=== PATIENT | male | born 1965 | race Caucasian/White ===

== ENCOUNTER 2016-06-30 13:14 | Inpatient (IN) | payer SELFPAY ==
[2016-06-30] VITALS (7 sets, daily range): BP systolic 128–148; BP diastolic 79–95
[~2016-06-30] VITALS: Ht 172.7 cm; Wt 92.5 kg
[2016-06-30] MEDS ORDERED: LISI10TA2 PO (13:18)
[2016-06-30] MEDS ORDERED: ALPR2TAB2 PO (13:18)
[2016-06-30] MEDS: MORPHINE SULFATE 2 MG/ML DISP.SYRIN. IV PRN ×4 (13:46→20:14)
[2016-06-30] MEDS: IV NORMAL SALINE 1000ML BAG 1,000 ML IV SCH ×2 (13:48→21:44)
--- NOTE | 2016-06-30 14:36 | PDOC1 ---
History and Physical Current Medications Current Medications Current Medications Medications (Trade) Dose Ordered Sig/Bethany Start Time Stop Time Status Last Admin Dose Admin Morphine Sulfate 2 mg PRN Q2HR PRN 06/30/16 13:30 06/30/16 13:46 2 MG Piperacillin Sod/ Tazobactam Sod 3.375 gm/Sodium Chloride 50 ml @ 100 mls/hr Q6HRS 06/30/16 18:00 UNV Sodium Chloride 1,000 ml @ 75 mls/hr [id number] 06/30/16 13:30 06/30/16 13:48 75 MLS/HR Allergies Allergies Allergies Coded Allergies Type Severity Reaction Last Updated Verified No Known Allergies Allergy Unknown 06/30/16 Yes ROS Review of System CONSTITUTIONAL: No fever or chills EYES: No recent changes SKIN: redness and swelling CARDIOVASCULAR: No chest pain, syncope, palpitations, or edema RESPIRATORY: No SOB or cough GASTROINTESTINAL: No nausea, vomiting or abdominal pain NEUROLOGICAL: No headaches or weakness ENDOCRINE: No cold or heat intolerance GENITOURINARY: No urgency or frequency of urination MUSCULOSKELETAL: left fore arm swelling with redness LYMPHATICS: No enlarged lymph nodes PSYCHIATRIC: No anxiety or depression Physical Exam Physical Exam GEN.: No apparent distress. Alert and oriented times 3. HEENT: Head is normocephalic, atraumatic NECK: Supple. no JVD LUNGS: Clear to auscultation. normal airflow HEART: RRR, S1, S2 present. Peripheral pulses intact ABDOMEN: Soft, nontender. Positive bowel sounds. EXTREMITIES: LEFT UPPER EXTREMITY FOREARM INDURATED SWELLING WITH ABSCESS, SENSATION AND PULSE INTACT IN FINGERS, NEUROLOGIC: Normal speech, normal tone PSYCHIATRIC: Normal affect, normal mood. SKIN: Vitals Vitals Vital Signs Date Time Temp Pulse Resp B/P (MAP) Pulse Ox O2 Delivery O2 Flow Rate FiO2 06/30/16 14:16 Room Air VTE Prophylaxis Ordered VTE Prophylaxis Devices: No VTE Pharmacological Prophylaxi: No SOLA VILLA MD June 30, 2016 14:36
[2016-06-30] MEDS ORDERED: VANCOMYCIN 2 GM in IV NORMAL SALINE 500ML BAG 500 ML IV ONE (16:30)
[2016-06-30] MEDS: VANCOMYCIN PER PHARMACY MC PRN (16:41)
--- NOTE | 2016-06-30 17:13 | PDOC2 ---
CONSULT Date of Consult Date of Consult DATE: 06/30/16 TIME: 16:58 Reason for Consult Reason for Consult: left forearm abscess Identification/Chief Complaint Chief Complaint left arm pain, swelling Source Source: Chart review, Patient History of Present Illness Reason for Visit: The patient is a 50 year old right hand dominant male who presented to the [facility] ER with a complaint of three days of left forearm swelling after he "fell ". [facility]. He does not report any history of drug abuse or injecting substances. He will not provide anymore history because he "does not fell well". He says he has had " all the symptoms" When asked about nausea, vomiting, and fever. Past Medical History Cardiovascular: HTN Psych: Anxiety Past Surgical History Past Surgical History: No pertinent history Family History Family History unknown Social History Lives: Homeless Current Problem List Problem List left forearm abscess Current Medications Current Medications Current Medications Morphine Sulfate 2 mg PRN Q2HR PRN IV PAIN Last administered on 06/30/16 16:26 ; Start 06/30/16 at 13:30 Sodium Chloride 1,000 ml @ 75 mls/hr [id number] IV Last administered on 06/30/16 13:48; Start 06/30/16 at 13:30 Piperacillin Sod/ Tazobactam Sod 3.375 gm/Sodium Chloride 50 ml @ 100 mls/hr Q6HRS IV ; Start 06/30/16 at 18:00 Vancomycin HCl (Vanco Per Pharmacy) 1 each PRN DAILY PRN MC SEE COMMENTS Last administered on 06/30/16 16:41; Start 06/30/16 at 21:00 Vancomycin HCl 2 gm/Sodium Chloride 500 ml @ 250 mls/hr 1X ONCE IV Last administered on 06/30/16 16:27; Start 06/30/16 at 16:30; Stop 06/30/16 at 18:29 Vancomycin HCl 1.25 gm/Sodium Chloride 250 ml @ 167 mls/hr Q12H IV ; Start 12/08 at 04:30 Vancomycin HCl 1 each 1X ONCE MC ; Start 07/02/16 at 04:00; Stop 07/02/16 at 04 :01 Active Scripts Active Reported Xanax (Alprazolam) 2 Mg Tablet 1 Tab PO TID Lisinopril 10 Mg Tablet 1 Tab PO DAILY Allergies Allergies: Coded Allergies: No Known Allergies (Verified Allergy, Unknown, 06/30/16) ROS General: YES: Other (subjective fevers) Gastrointestinal: Yes Nausea, Yes Vomiting Musculoskeletal: Yes Pain In: (left forearm, ), Yes Swelling In: (left forearm) Physical Exam Physical Exam the patient is very disheveled. feverish with malaise. Extremities: Other (left forearm swollen with fluctuant mass over his volar forearm, pustules formed over the mass. weeping. nvi distally with swelling into his hand. ) Vitals VITALS Vital Signs Date Time Temp Pulse Resp B/P (MAP) Pulse Ox O2 Delivery O2 Flow Rate FiO2 06/30/16 16:26 Room Air 06/30/16 15:00 97.6 99 22 147/86 (106) 96 97.6 Labs Labs From [facility] ER today: wbc 17 hb 13.1 plt 262 Na 133 K 3.7 Cl 98 CO2: 28 BUN 7 Cr 0.9 lactic acid: 1.7 Ca 8.9 Glucose 105 blood cultures drawn and pending. Current Medications Medications (Trade) Dose Ordered Sig/Bethany Route PRN Reason Start Time Stop Time Status Last Admin Dose Admin Morphine Sulfate 2 mg PRN Q2HR PRN IV PAIN 06/30/16 13:30 06/30/16 16:26 Sodium Chloride 1,000 ml @ 75 mls/hr [id number] IV 06/30/16 13:30 06/30/16 13:48 Piperacillin Sod/ Tazobactam Sod 3.375 gm/Sodium Chloride 50 ml @ 100 mls/hr Q6HRS IV 06/30/16 18:00 Vancomycin HCl (Vanco Per Pharmacy) 1 each PRN DAILY PRN MC SEE COMMENTS 06/30/16 21:00 06/30/16 16:41 Vancomycin HCl 2 gm/Sodium Chloride 500 ml @ 250 mls/hr 1X ONCE IV 06/30/16 16:30 06/30/16 18:29 06/30/16 16:27 Vancomycin HCl 1.25 gm/Sodium Chloride 250 ml @ 167 mls/hr Q12H IV 07/01/16 04:30 Vancomycin HCl 1 each 1X ONCE MC 07/02/16 04:00 07/02/16 04:01 Images Images xrays from [facility] were reviewed, large soft tissue swelling, no acute bony abnormalities. Assessment/Plan Assessment/Plan The patient is a 50 year old rhd male with a left forearm abscess and surrounding cellulitis that he reports has been going on for three days. Due to his overall demeanor, I think it would be prudent to relieve his abscess as soon as possible. He has been NPO since this am. I plan to take him to the OR this evening for I &D, possible wound vac placement. Recc ID consult. I will obtain cultures in the OR. likely will need serial debridements and wound vac changes over the next week or so. Dispo may be difficult if he needs IV antibiotics due to his social situation. CRISTINA SWAN MD June 30, 2016 17:13
[2016-06-30] MEDS ORDERED: IV RINGERS,LACTATED 1000ML 1,000 ML IV SCH (17:25)
[2016-06-30] MEDS ORDERED: fentaNYL PF VIAL 100 MCG/2 ML VIAL IV PRN (17:30)
[2016-06-30] MEDS ORDERED: ONDANSETRON PF 4 MG/2 ML VIAL. IV PRN (17:30)
[2016-06-30] MEDS ORDERED: PROCHLORPERAZINE 10 MG/2 ML VIAL. IV PRN (17:30)
[2016-06-30] MEDS ORDERED: LIDOCAINE 1% 1 ML SYRINGE. ID PRN (17:30)
[2016-06-30] MEDS: PIPERACILLIN/TAZOBACTAM 3.375 GM in IV NORMAL SALINE 50ML 50 ML IV SCH ×2 (18:00→23:57)
[2016-06-30] MEDS ORDERED: LIDOCAINE 2% 100 MG/5 ML SYRINGE. ONE (18:00)
[2016-06-30] MEDS ORDERED: PROPOFOL 20 ML IV ONE (18:01)
[2016-06-30] MEDS ORDERED: DEXAMETHASONE SOD PHOS 20 MG/5 ML VIAL. ONE (18:01)
[2016-06-30] MEDS ORDERED: ONDANSETRON PF 4 MG/2 ML VIAL. ONE (18:01)
[2016-06-30] MEDS ORDERED: fentaNYL PF VIAL 100 MCG/2 ML VIAL ONE ×2 (18:02→18:38)
--- NOTE | 2016-06-30 18:28 | HP ---
ADMIT DATE: 06/30/2016 CHIEF COMPLAINT: Left forearm swelling and redness. HISTORY OF PRESENT ILLNESS: A 50-year-old male patient with prior history of hypertension, presented to the [place] ER with complaints of left forearm swelling and redness for nearly 3 days. The patient did not recall any clear episodes; however, he might have had a fall or a bite insect or snake, which might have happened a few days ago; however, he did not recall, as he was kind of sleepy at the time. His history is very vague, but he denies any injection drug use, currently is homeless and disabled. Denies any fever or chills; however, this pain with swelling is gradually getting worse, which made him to come to the ER. PAST MEDICAL HISTORY: Diabetes and hypertension. PAST SURGICAL HISTORY: None. PERSONAL HISTORY: No smoking, no alcohol, no drug abuse. FAMILY HISTORY: Adopted. REVIEW OF SYSTEMS AND PHYSICAL EXAMINATION: Please see my electronic H and P. INITIAL VITAL SIGNS: Temperature 98.6, pulse 107, respirations 18, blood pressure not recorded. LABORATORY DATA: CBC: Labs reviewed from [place] ER. Hemoglobin is 13.1, WBC 17.3, hematocrit 38.0, platelets 262. Chemistry: Creatinine is 0.9, sodium is 133, potassium 3.7, chloride 98, carbon dioxide 28, gap is 7. Lactic acid 1.7. IMAGING DATA: X-ray of the forearm showed soft tissue swelling of the left forearm with more focal swelling in the mid forearm region. ASSESSMENT: 1. Acute swelling of the left forearm, unclear etiology, suspected abscess and infectious process. 2. Hypertension. 3. Leukocytosis. PLAN: 1. The patient has been admitted for IV antibiotics. Currently, he was started on Zosyn and pain control will be with IV morphine 2 mg q. 2 hours as needed. 2. I will start him p.r.n. hydralazine for blood pressure. 3. Dr. Harrington has been notified for a possible incision and drainage under surgical recommendations. 4. Infectious Disease consult for further recommendations. 5. Wound Gram stain. Monitor vitals closely. 6. CBC, BMP in a.m. SOLA VILLA MD DR: MIN/zoraida JOB#: [id number] / [id number] KATHRYN
[2016-06-30] MEDS ORDERED: SEVOFLURANE 61 TO 120 MINUTES. IH ONE (19:20)
--- NOTE | 2016-06-30 19:43 | PDOC ---
BRIEF OPERATIVE NOTE Date: June 30, 2016 Pre-Op Diagnosis left forearm abscess Post-Op Diagnosis same, myositis Procedure Performed incision and drainage of left forearm abscess, excisional debridement skin, subcutaneous tissue, muscle, and fascia Surgeon Cristina Swan MD Pelt Inspector none Anesthesia Type: General Blood Loss 50 cc Specimens Obtained 3 cultures Findings maurizio purulence under pressure, 40 cc. loculated abscess, myositis and necrotic muscle present. Complications none Additional Remarks wv to intermittent suction. will need antibiotics, likely washed out 1-2 more times depending on how his muscle responds. CRISTINA SWAN MD June 30, 2016 19:43
[2016-06-30] MEDS: fentaNYL PF VIAL 100 MCG/2 ML VIAL IV PRN ×2 (20:08→20:19)
[2016-06-30] MEDS: HYDROmorphone 2 MG/ML VIAL IV PRN ×2 (20:24→20:26)
--- NOTE | 2016-06-30 21:26 | PDOC4 ---
Operative Note Operative Note Operative Report Date of Operation: 06/30/2016 Preoperative Diagnosis: left forearm abscess Postoperative Diagnosis: left forearm abscess, myositis. Abscess dimensions: 13 x 5 cm Operation Performed: 1. Debridement of muscle and / or fascia, including epidermis, dermis, and subcutaneous tissue, first; 20 square cms or less, CPT 40687 2. Debridement of muscle and / or fascia, including epidermis, dermis, and subcutaneous tissue, each additional 20 square cms, CPT 70869 x 2 3. Negative pressure wound therapy; total wound(s) surface area greater than 50 square centimeters, CPT 44583 Surgeon: Cristina Swan MD Advertisement Distributor: none Anesthesia: General Estimated Blood Loss: Surgical Indication: The patient is a 50 year old right-hand dominant male with a left forearm abscess. He presented to the ER toxic appearing with a large fluctuant mass in his forearm. After discussing the risks and benefits of treatment the decision was made to take him to the OR to debride his abscess. Description of Procedure: The patient was identified, marked, and the procedure was reconfirmed by myself prior to taking them to the operating room. IV antibiotics were running from the floor already. A timeout was performed. The patient was positioned appropriately and underwent adequate general anesthesia. A nonsterile tourniquet was applied to the operative extremity. The extremity was prepped and draped in a standard surgical fashion. After inflating the tourniquet an incision was made directly over the area of most fluctuance on the volar forearm. Andrew purulence was encountered, approximately 40 cc. The skin was very edematous on the entire forearm. Cultures were taken. The entire abscess area was measured as 13 inches long by 5 inches wide. The superficial tisses were thickened with fibrinous material. The fascia and muscles of the brachioradialis and ECRL were partially necrotic and noncontractile. The fascia, muscles, and surrounding tissues were excisionally debrided with a knife, currettes, and ronguers until healthy bleeding contractile tissue was encountered. The area was irrigated with 6 liters of sterile saline before placing a wound vac sponge over the area to seal it. The wound vac was placed on intermittent suction and the seal was good. Disposition: The patient was transferred to the bed and taken to the recovery room awake, alert, and in stable condition. Complications: None Post-operative Plan: ID consult, IV antibiotics. Will repeat debridement In 2-3 days. CRISTINA SWAN MD June 30, 2016 21:26
[2016-07-01 03:00] VITALS: BP 115/76
[2016-07-01] MEDS: VANCOMYCIN 1.25 GM in IV NORMAL SALINE 250ML 250 ML IV SCH ×2 (03:58→17:06)
[2016-07-01] MEDS: PIPERACILLIN/TAZOBACTAM 3.375 GM in IV NORMAL SALINE 50ML 50 ML IV SCH ×4 (05:42→23:29)
[2016-07-01 07:50] VITALS: BP 108/69
[2016-07-01 08:44] LABS: BASO % 0 % (0-3); EOS % 0 % (0-3); HEMATOCRIT 35.4 % (39.0-53.0); HEMOGLOBIN 12.3 g/dL (13.0-17.5); LYMPH # 1.1 x10^3/uL (1.0-4.8); LYMPH % 7 % (24-48); MEAN CORPUSCULAR HEMOGLOBIN 31 pg (25-35); MEAN CORPUSCULAR HGB CONC 35 g/dL (31-37); MEAN CORPUSCULAR VOLUME 88 fL (79-100); MONO % 7 % (0-9); NEUT % 85 % (31-73); PLATELET COUNT 284 x10^3/uL (140-400); RED BLOOD COUNT 4.04 x10^6/uL (4.30-5.70); RED CELL DISTRIBUTION WIDTH 12.8 % (11.5-14.5); WHITE BLOOD COUNT 15.3 x10^3/uL (4.0-11.0)
[2016-07-01 08:56] LABS: CALCIUM 8.7 mg/dL (8.5-10.1); CREATININE 0.8 mg/dL (0.7-1.3); GFR 103.2; POTASSIUM 4.1 mmol/L (3.5-5.1)
--- NOTE | 2016-07-01 09:16 | PDOC ---
Infectious Disease Note ROS ROS GEN: Denies fevers, chills, sweats HEENT: Denies blurred vision, sore throat CV: Denies chest pain RESP: Denies shortness of air, cough GI: Denies n/v/d NEURO: Denies confusion, dizziness MSK: Denies weakness, joint pain/swelling Vital Sign Vital Signs Vital Signs Date Time Temp Pulse Resp B/P (MAP) Pulse Ox O2 Delivery O2 Flow Rate FiO2 07/01/16 08:00 Room Air 07/01/16 07:50 97.9 76 16 108/69 (82) 98 97.9 06/30/16 20:26 2.0 Physical Exam PHYSICAL EXAM GENERAL: NAD, Alert HEENT: PERRL, OC/OP NECK: Supple, no JVD, no LN LUNGS: Clear HEART: S1S2, no gallop, no murmur ABD: Soft, NT, no organomegaly, no rebound EXT: No edema, no cyanosis CLINICAL STAFF RN: Alert, oriented x 3, no focal neurologic deficit SKIN: No rash IV: ok Labs Lab Laboratory Tests Test 07/01/16 08:05 White Blood Count 15.3 x10^3/uL (4.0-11.0) Red Blood Count 4.04 x10^6/uL (4.30-5.70) Hemoglobin 12.3 g/dL (13.0-17.5) Hematocrit 35.4 % (39.0-53.0) Mean Corpuscular Volume 88 fL (79-100) Mean Corpuscular Hemoglobin 31 pg (25-35) Mean Corpuscular Hemoglobin Concent 35 g/dL (31-37) Red Cell Distribution Width 12.8 % (11.5-14.5) Platelet Count 284 x10^3/uL (140-400) Neutrophils (%) (Auto) 85 % (31-73) Lymphocytes (%) (Auto) 7 % (24-48) Monocytes (%) (Auto) 7 % (0-9) Eosinophils (%) (Auto) 0 % (0-3) Basophils (%) (Auto) 0 % (0-3) Neutrophils # (Auto) 13.1 x10^3uL (1.8-7.7) Lymphocytes # (Auto) 1.1 x10^3/uL (1.0-4.8) Monocytes # (Auto) 1.1 x10^3/uL (0.0-1.1) Eosinophils # (Auto) 0.0 x10^3/uL (0.0-0.7) Basophils # (Auto) 0.0 x10^3/uL (0.0-0.2) Sodium Level 136 mmol/L (136-145) Potassium Level 4.1 mmol/L (3.5-5.1) Chloride Level 102 mmol/L (98-107) Carbon Dioxide Level 28 mmol/L (21-32) Anion Gap 6 (6-14) Blood Urea Nitrogen 13 mg/dL (8-26) Creatinine 0.8 mg/dL (0.7-1.3) Estimated GFR (Cockcroft-Gault) 103.2 Glucose Level 115 mg/dL (70-99) Calcium Level 8.7 mg/dL (8.5-10.1) Objective Assessment Right arm abscess s/p I and D 06/30. States has had Tetanus within 5 years Leukocytosis - now s/p Decadron HTN ? h/o Staph Plan Plan of Care Cont Zosyn. I added Vanc 06/30 Cont wound care F/u labs and cults Thank you # [id number] CHARLA MASSEY MD July 01, 2016 09:16
[2016-07-01 09:21] LABS: PLT ESTIMATE ADEQUATE (ADEQUATE)
--- NOTE | 2016-07-01 09:27 | PDOC ---
PROGRESS NOTES Chief Complaint Chief Complaint CC: Left arm abscess A/P Left forearm abscess, myositis S/P ID Leucocytosis Plan iv zosyn and vancomycin renal dosing Pain control wound [facility] orthopedics and ID following labs reviewed, monitor wbc Vitals Vitals Vital Signs Date Time Temp Pulse Resp B/P (MAP) Pulse Ox O2 Delivery O2 Flow Rate FiO2 07/01/16 08:00 Room Air 07/01/16 07:50 97.9 76 16 108/69 (82) 98 97.9 06/30/16 20:26 2.0 Physical Exam General: Alert, Oriented X3 Heart: Normal S1, Normal S2 Lungs: Clear Abdomen: Normal bowel sounds, Soft Extremities: Other (wound [facility], pulse intact in extremities. ) Labs LABS Laboratory Tests Test 07/01/16 08:05 White Blood Count 15.3 x10^3/uL (4.0-11.0) Red Blood Count 4.04 x10^6/uL (4.30-5.70) Hemoglobin 12.3 g/dL (13.0-17.5) Hematocrit 35.4 % (39.0-53.0) Mean Corpuscular Volume 88 fL (79-100) Mean Corpuscular Hemoglobin 31 pg (25-35) Mean Corpuscular Hemoglobin Concent 35 g/dL (31-37) Red Cell Distribution Width 12.8 % (11.5-14.5) Platelet Count 284 x10^3/uL (140-400) Neutrophils (%) (Auto) 85 % (31-73) Lymphocytes (%) (Auto) 7 % (24-48) Monocytes (%) (Auto) 7 % (0-9) Eosinophils (%) (Auto) 0 % (0-3) Basophils (%) (Auto) 0 % (0-3) Neutrophils # (Auto) 13.1 x10^3uL (1.8-7.7) Lymphocytes # (Auto) 1.1 x10^3/uL (1.0-4.8) Monocytes # (Auto) 1.1 x10^3/uL (0.0-1.1) Eosinophils # (Auto) 0.0 x10^3/uL (0.0-0.7) Basophils # (Auto) 0.0 x10^3/uL (0.0-0.2) Segmented Neutrophils % 83 % (35-66) Band Neutrophils % 3 % (0-9) Lymphocytes % 7 % (24-48) Monocytes % 7 % (0-10) Platelet Estimate Adequate (ADEQUATE) Sodium Level 136 mmol/L (136-145) Potassium Level 4.1 mmol/L (3.5-5.1) Chloride Level 102 mmol/L (98-107) Carbon Dioxide Level 28 mmol/L (21-32) Anion Gap 6 (6-14) Blood Urea Nitrogen 13 mg/dL (8-26) Creatinine 0.8 mg/dL (0.7-1.3) Estimated GFR (Cockcroft-Gault) 103.2 Glucose Level 115 mg/dL (70-99) Calcium Level 8.7 mg/dL (8.5-10.1) Comment Review of Relevant I have reviewed the following items mell (where applicable) has been applied. Labs Laboratory Tests Test 07/01/16 08:05 White Blood Count 15.3 x10^3/uL (4.0-11.0) Red Blood Count 4.04 x10^6/uL (4.30-5.70) Hemoglobin 12.3 g/dL (13.0-17.5) Hematocrit 35.4 % (39.0-53.0) Mean Corpuscular Volume 88 fL (79-100) Mean Corpuscular Hemoglobin 31 pg (25-35) Mean Corpuscular Hemoglobin Concent 35 g/dL (31-37) Red Cell Distribution Width 12.8 % (11.5-14.5) Platelet Count 284 x10^3/uL (140-400) Neutrophils (%) (Auto) 85 % (31-73) Lymphocytes (%) (Auto) 7 % (24-48) Monocytes (%) (Auto) 7 % (0-9) Eosinophils (%) (Auto) 0 % (0-3) Basophils (%) (Auto) 0 % (0-3) Neutrophils # (Auto) 13.1 x10^3uL (1.8-7.7) Lymphocytes # (Auto) 1.1 x10^3/uL (1.0-4.8) Monocytes # (Auto) 1.1 x10^3/uL (0.0-1.1) Eosinophils # (Auto) 0.0 x10^3/uL (0.0-0.7) Basophils # (Auto) 0.0 x10^3/uL (0.0-0.2) Segmented Neutrophils % 83 % (35-66) Band Neutrophils % 3 % (0-9) Lymphocytes % 7 % (24-48) Monocytes % 7 % (0-10) Platelet Estimate Adequate (ADEQUATE) Sodium Level 136 mmol/L (136-145) Potassium Level 4.1 mmol/L (3.5-5.1) Chloride Level 102 mmol/L (98-107) Carbon Dioxide Level 28 mmol/L (21-32) Anion Gap 6 (6-14) Blood Urea Nitrogen 13 mg/dL (8-26) Creatinine 0.8 mg/dL (0.7-1.3) Estimated GFR (Cockcroft-Gault) 103.2 Glucose Level 115 mg/dL (70-99) Calcium Level 8.7 mg/dL (8.5-10.1) Laboratory Tests Test 07/01/16 08:05 White Blood Count 15.3 x10^3/uL (4.0-11.0) Red Blood Count 4.04 x10^6/uL (4.30-5.70) Hemoglobin 12.3 g/dL (13.0-17.5) Hematocrit 35.4 % (39.0-53.0) Mean Corpuscular Volume 88 fL (79-100) Mean Corpuscular Hemoglobin 31 pg (25-35) Mean Corpuscular Hemoglobin Concent 35 g/dL (31-37) Red Cell Distribution Width 12.8 % (11.5-14.5) Platelet Count 284 x10^3/uL (140-400) Neutrophils (%) (Auto) 85 % (31-73) Lymphocytes (%) (Auto) 7 % (24-48) Monocytes (%) (Auto) 7 % (0-9) Eosinophils (%) (Auto) 0 % (0-3) Basophils (%) (Auto) 0 % (0-3) Neutrophils # (Auto) 13.1 x10^3uL (1.8-7.7) Lymphocytes # (Auto) 1.1 x10^3/uL (1.0-4.8) Monocytes # (Auto) 1.1 x10^3/uL (0.0-1.1) Eosinophils # (Auto) 0.0 x10^3/uL (0.0-0.7) Basophils # (Auto) 0.0 x10^3/uL (0.0-0.2) Segmented Neutrophils % 83 % (35-66) Band Neutrophils % 3 % (0-9) Lymphocytes % 7 % (24-48) Monocytes % 7 % (0-10) Platelet Estimate Adequate (ADEQUATE) Sodium Level 136 mmol/L (136-145) Potassium Level 4.1 mmol/L (3.5-5.1) Chloride Level 102 mmol/L (98-107) Carbon Dioxide Level 28 mmol/L (21-32) Anion Gap 6 (6-14) Blood Urea Nitrogen 13 mg/dL (8-26) Creatinine 0.8 mg/dL (0.7-1.3) Estimated GFR (Cockcroft-Gault) 103.2 Glucose Level 115 mg/dL (70-99) Calcium Level 8.7 mg/dL (8.5-10.1) Medications Current Medications Morphine Sulfate 2 mg PRN Q2HR PRN IV PAIN Last administered on 06/30/16 16:26 ; Start 06/30/16 at 13:30 Sodium Chloride 1,000 ml @ 75 mls/hr [id number] IV Last administered on 06/30/16 21:44; Start 06/30/16 at 13:30 Piperacillin Sod/ Tazobactam Sod 3.375 gm/Sodium Chloride 50 ml @ 100 mls/hr Q6HRS IV Last administered on 07/01/16 05:42; Start 06/30/16 at 18:00 Vancomycin HCl (Vanco Per Pharmacy) 1 each PRN DAILY PRN MC SEE COMMENTS Last administered on 06/30/16 16:41; Start 06/30/16 at 21:00 Vancomycin HCl 2 gm/Sodium Chloride 500 ml @ 250 mls/hr 1X ONCE IV Last administered on 06/30/16 16:27; Start 06/30/16 at 16:30; Stop 06/30/16 at 18:29; Status DC Vancomycin HCl 1.25 gm/Sodium Chloride 250 ml @ 167 mls/hr Q12H IV Last administered on 07/01/16 03:58; Start 07/01/16 at 04:30 Vancomycin HCl 1 each 1X ONCE MC ; Start 07/02/16 at 04:00; Stop 07/02/16 at 04 :01 Ondansetron HCl (Zofran) 4 mg PRN Q6HRS PRN IV NAUSEA/VOMITING; Start 06/30/16 at 17:30; Stop 07/01/16 at 17:29 Fentanyl Citrate (Fentanyl 2ml Vial) 25 mcg PRN Q5MIN PRN IV MILD PAIN; Start 06/30/16 at 17:30; Stop 07/01/16 at 17:29 Fentanyl Citrate (Fentanyl 2ml Vial) 50 mcg PRN Q5MIN PRN IV MODERATE PAIN Last administered on 06/30/16 20:19; Start 06/30/16 at 17:30; Stop 07/01/16 at 17 :29 Morphine Sulfate 1 mg PRN Q10MIN PRN IV SEVERE PAIN Last administered on 20:14; Start 06/30/16 at 17:30; Stop 07/01/16 at 17:29 Ringer's Solution 1,000 ml @ 0 mls/hr Q0M IV ; Start 06/30/16 at 17:25; Stop 12/08 at 05:24; Status DC Lidocaine HCl 2 ml PRN 1X PRN ID PRIOR TO IV START; Start 06/30/16 at 17:30; Stop 07/01/16 at 17:29 Hydromorphone HCl (Dilaudid) 0.5 mg PRN Q10MIN PRN IV SEV PAIN, Second choice Last administered on 06/30/16 20:24; Start 06/30/16 at 17:30; Stop 07/01/16 at 17 :29 Prochlorperazine Edisylate (Compazine) 5 mg PACU PRN PRN IV NAUSEA, MRX1; Start 06/30/16 at 17:30; Stop 07/01/16 at 17:29 Lidocaine HCl (Lidocaine HCl 2% Abboject) 100 mg STK-MED ONCE .ROUTE ; Start 06/30/16 at 18:00; Stop 06/30/16 at 18:01; Status DC Ondansetron HCl (Zofran) 4 mg STK-MED ONCE .ROUTE ; Start 06/30/16 at 18:01; Stop 06/30/16 at 18:02; Status DC Dexamethasone Sodium Phosphate (Decadron) 20 mg STK-MED ONCE .ROUTE ; Start 06/30 at 18:01; Stop 06/30/16 at 18:02; Status DC Propofol 20 ml @ As Directed STK-MED ONCE IV ; Start 06/30/16 at 18:01; Stop 06/30 at 18:02; Status DC Fentanyl Citrate (Fentanyl 2ml Vial) 100 mcg STK-MED ONCE .ROUTE ; Start at 18:02; Stop 06/30/16 at 18:03; Status DC Fentanyl Citrate (Fentanyl 2ml Vial) 100 mcg STK-MED ONCE .ROUTE ; Start at 18:38; Stop 06/30/16 at 18:39; Status DC Sevoflurane (Ultane) 60 ml STK-MED ONCE IH ; Start 06/30/16 at 19:20; Stop at 19:21; Status DC Hydromorphone HCl (Dilaudid) 0.4 mg PRN Q4HRS PRN IVP PAIN; Start 06/30/16 at 19 :45 Active Scripts Active Reported Xanax (Alprazolam) 2 Mg Tablet 1 Tab PO TID Lisinopril 10 Mg Tablet 1 Tab PO DAILY Vitals/I & O Vital Sign - Last 24 Hours 06/30/16 06/30/16 06/30/16 06/30/16 12:00 13:46 14:09 15:00 Temp 97.9 97.6 97.9 97.6 Pulse 98 99 Resp 22 22 B/P (MAP) 148/94 (112) 147/86 (106) Pulse Ox 99 96 O2 Delivery Room Air Room Air Room Air Room Air 06/30/16 06/30/16 06/30/16 06/30/16 16:26 16:56 18:31 19:38 Temp 100.3 100.0 100.3 100.0 Pulse 96 94 Resp 17 16 B/P (MAP) 131/75 118/69 Pulse Ox 99 99 O2 Delivery Room Air Room Air Room Air Simple Mask O2 Flow Rate 10 06/30/16 06/30/16 06/30/16 06/30/16 19:53 19:53 20:01 20:08 Pulse 96 Resp 20 20 20 B/P (MAP) 146/96 Pulse Ox 96 94 96 O2 Delivery Room Air Nasal Cannula Room Air Nasal Cannula O2 Flow Rate 2 2.0 06/30/16 06/30/16 06/30/16 06/30/16 20:08 20:14 20:19 20:24 Pulse 93 Resp 18 18 18 B/P (MAP) 138/84 Pulse Ox 94 95 96 96 O2 Delivery Nasal Cannula Nasal Cannula Nasal Cannula Nasal Cannula O2 Flow Rate 2 2.0 2.0 2.0 06/30/16 06/30/16 06/30/16 06/30/16 20:26 20:45 20:45 20:45 Resp 16 20 20 20 Pulse Ox 96 94 94 94 O2 Delivery Nasal Cannula Room Air Room Air Room Air O2 Flow Rate 2.0 06/30/16 06/30/16 06/30/16 06/30/16 20:50 21:05 21:20 21:35 Temp 98.1 98.1 Pulse 92 96 97 87 Resp 18 18 18 18 B/P (MAP) 140/95 (110) 141/88 (105) 128/80 (96) 131/84 (100) Pulse Ox 96 96 96 97 O2 Delivery Room Air Room Air Room Air Room Air 06/30/16 07/01/16 07/01/16 07/01/16 23:35 03:00 07:50 08:00 Temp 97.9 97.7 97.9 97.9 97.7 97.9 Pulse 92 79 76 Resp 18 18 16 B/P (MAP) 132/79 (96) 115/76 (89) 108/69 (82) Pulse Ox 93 94 98 O2 Delivery Room Air Room Air Room Air Room Air Intake and Output 06/30/16 06/30/16 07/01/16 15:00 23:00 07:00 Intake Total 2650 ml Output Total 1375 ml 1475 ml Balance 1275 ml -1475 ml SOLA VILLA MD July 01, 2016 09:27
[2016-07-01 11:03] VITALS: BP 101/66
[2016-07-01] MEDS: VANCOMYCIN PER PHARMACY MC PRN (12:56)
[2016-07-01] MEDS: IV NORMAL SALINE 1000ML BAG 1,000 ML IV SCH (15:19)
[2016-07-01 15:20] VITALS: BP 104/66
--- NOTE | 2016-07-01 16:51 | PDOC ---
ORTHO PROGRESS NOTES Subjective The patient says his pain has improved since surgery. He still has swelling and subjective fevers Post-op Day: 1 Procedure I &D left forearm abscess. Vitals Vital Signs Date Time Temp Pulse Resp B/P (MAP) Pulse Ox O2 Delivery O2 Flow Rate FiO2 07/01/16 15:20 98.0 87 15 104/66 (79) 95 Room Air 98.0 06/30/16 20:26 2.0 Labs Micro: gram stain from surgery reveals: small gpc, (looks like anaerobes), gp rods Laboratory Tests Test 07/01/16 08:05 White Blood Count 15.3 x10^3/uL (4.0-11.0) Red Blood Count 4.04 x10^6/uL (4.30-5.70) Hemoglobin 12.3 g/dL (13.0-17.5) Hematocrit 35.4 % (39.0-53.0) Mean Corpuscular Volume 88 fL (79-100) Mean Corpuscular Hemoglobin 31 pg (25-35) Mean Corpuscular Hemoglobin Concent 35 g/dL (31-37) Red Cell Distribution Width 12.8 % (11.5-14.5) Platelet Count 284 x10^3/uL (140-400) Neutrophils (%) (Auto) 85 % (31-73) Lymphocytes (%) (Auto) 7 % (24-48) Monocytes (%) (Auto) 7 % (0-9) Eosinophils (%) (Auto) 0 % (0-3) Basophils (%) (Auto) 0 % (0-3) Neutrophils # (Auto) 13.1 x10^3uL (1.8-7.7) Lymphocytes # (Auto) 1.1 x10^3/uL (1.0-4.8) Monocytes # (Auto) 1.1 x10^3/uL (0.0-1.1) Eosinophils # (Auto) 0.0 x10^3/uL (0.0-0.7) Basophils # (Auto) 0.0 x10^3/uL (0.0-0.2) Segmented Neutrophils % 83 % (35-66) Band Neutrophils % 3 % (0-9) Lymphocytes % 7 % (24-48) Monocytes % 7 % (0-10) Platelet Estimate Adequate (ADEQUATE) Sodium Level 136 mmol/L (136-145) Potassium Level 4.1 mmol/L (3.5-5.1) Chloride Level 102 mmol/L (98-107) Carbon Dioxide Level 28 mmol/L (21-32) Anion Gap 6 (6-14) Blood Urea Nitrogen 13 mg/dL (8-26) Creatinine 0.8 mg/dL (0.7-1.3) Estimated GFR (Cockcroft-Gault) 103.2 Glucose Level 115 mg/dL (70-99) Calcium Level 8.7 mg/dL (8.5-10.1) Laboratory Tests Test 07/01/16 08:05 White Blood Count 15.3 x10^3/uL (4.0-11.0) Red Blood Count 4.04 x10^6/uL (4.30-5.70) Hemoglobin 12.3 g/dL (13.0-17.5) Hematocrit 35.4 % (39.0-53.0) Mean Corpuscular Volume 88 fL (79-100) Mean Corpuscular Hemoglobin 31 pg (25-35) Mean Corpuscular Hemoglobin Concent 35 g/dL (31-37) Red Cell Distribution Width 12.8 % (11.5-14.5) Platelet Count 284 x10^3/uL (140-400) Neutrophils (%) (Auto) 85 % (31-73) Lymphocytes (%) (Auto) 7 % (24-48) Monocytes (%) (Auto) 7 % (0-9) Eosinophils (%) (Auto) 0 % (0-3) Basophils (%) (Auto) 0 % (0-3) Neutrophils # (Auto) 13.1 x10^3uL (1.8-7.7) Lymphocytes # (Auto) 1.1 x10^3/uL (1.0-4.8) Monocytes # (Auto) 1.1 x10^3/uL (0.0-1.1) Eosinophils # (Auto) 0.0 x10^3/uL (0.0-0.7) Basophils # (Auto) 0.0 x10^3/uL (0.0-0.2) Segmented Neutrophils % 83 % (35-66) Band Neutrophils % 3 % (0-9) Lymphocytes % 7 % (24-48) Monocytes % 7 % (0-10) Platelet Estimate Adequate (ADEQUATE) Sodium Level 136 mmol/L (136-145) Potassium Level 4.1 mmol/L (3.5-5.1) Chloride Level 102 mmol/L (98-107) Carbon Dioxide Level 28 mmol/L (21-32) Anion Gap 6 (6-14) Blood Urea Nitrogen 13 mg/dL (8-26) Creatinine 0.8 mg/dL (0.7-1.3) Estimated GFR (Cockcroft-Gault) 103.2 Glucose Level 115 mg/dL (70-99) Calcium Level 8.7 mg/dL (8.5-10.1) Notes LUE: wound vac to suction. decreased swelling in the hand and forearm. warmth and erythema to the midarm. nvi distally. Problems: (1) Abscess of forearm, left Assessment and Plan The patient is POD 1 status post I&D left forearm abscess. He is currently doing ok. Will plan to return to the OR on wednesday for repeat I & D. Will continue to monitor cultures, currently growing gram positive cocci and rods. CRISTINA SWAN MD July 01, 2016 16:51
[2016-07-01] MEDS: HYDROmorphone 2 MG/ML VIAL IV PRN (17:06)
[2016-07-01 19:00] VITALS: BP 120/76
[2016-07-01] MEDS: MORPHINE SULFATE 2 MG/ML DISP.SYRIN. IV PRN (20:22)
[2016-07-01 23:00] VITALS: BP 82/54
[2016-07-02 03:29] VITALS: BP 110/62
[2016-07-02] MEDS: HYDROmorphone 2 MG/ML VIAL IVP PRN ×4 (04:14→22:21)
[2016-07-02 04:47] LABS: CALCIUM 8.6 mg/dL (8.5-10.1); CREATININE 0.7 mg/dL (0.7-1.3); GFR 120.4; POTASSIUM 3.7 mmol/L (3.5-5.1)
[2016-07-02] MEDS: VANCOMYCIN PER PHARMACY MC PRN ×2 (05:11→12:22)
[2016-07-02] MEDS: PIPERACILLIN/TAZOBACTAM 3.375 GM in IV NORMAL SALINE 50ML 50 ML IV SCH ×3 (05:44→18:06)
[2016-07-02] MEDS: VANCOMYCIN 1.25 GM in IV NORMAL SALINE 250ML 250 ML IV SCH ×3 (06:33→22:22)
[2016-07-02 07:00] VITALS: BP 126/88
--- NOTE | 2016-07-02 09:43 | CONS ---
DATE OF CONSULTATION: 07/01/2016 LOCATION: The patient is in room 521. REQUESTING PHYSICIAN: Dr. Negrete. REASON FOR CONSULTATION: Arm abscess. HISTORY OF PRESENT ILLNESS: The patient is a pleasant 50-year-old gentleman who states he is currently homeless, although he is approved for disability and he is awaiting an apartment. [place] was walking in the dark and fell. Denies any known trauma to the area, but when he awakened on Wednesday, he had increased pain, swelling and also had fevers, chills and sweats. States he reported to [facility]. They wanted to admit him, but he said no. He was prescribed doxycycline. He denies any substance abuse. States he suffers from PTSD. States he was taking the doxycycline and despite this, things worsened and he subsequently has been admitted to [facility]. I was consulted on 06/30/2016. He was placed on Zosyn. I added vancomycin. He was taken to the operating room, underwent I and D of his arm and cultures are currently pending. He states he has had a tetanus shot within the last 5 years. PAST MEDICAL HISTORY: Positive for hypertension. He thinks he might have had a previous staph infection, but he is uncertain. Questionable PTSD. PAST SURGICAL HISTORY: Denies any surgeries. REVIEW OF SYSTEMS: Currently denies any fevers, chills, sweats. He has no headache, sore throat or cough. Appetite is improved. No nausea, vomiting, diarrhea. No dysuria, frequency or urgency. The arm pain is somewhat controlled. SOCIAL HISTORY: He is a smoker. Denies any alcohol. No substance abuse. 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 Denies any " record" that is on the books. FAMILY HISTORY: He is adopted. CURRENT MEDICATIONS: Include vancomycin, Zosyn, he did receive dexamethasone on 06/30/2016, morphine. Other meds are available and have been reviewed in the chart. PHYSICAL EXAMINATION: VITAL SIGNS: Afebrile, T-max was 100.3, currently 97.9, pulse 76, respirations 16, blood pressure 108/69, satting 98% on room air. CONSTITUTIONAL: He is cooperative, in no acute distress. HEENT: Pupils are equal and reactive. He has normal conjunctivae. Oral cavity, pharynx is clear. NECK: Supple, no JVD. LUNGS: Clear to auscultation bilaterally. HEART: S1, S2. ABDOMEN: Soft, nontender, nondistended with positive bowel sounds. EXTREMITIES: Without clubbing or cyanosis. Left arm is dressed. Has a wound VAC in place. There is 2+ edema. SKIN: Warm to touch without signs of rash. NEUROLOGIC: He is nonfocal. Moves all extremities. Affect is somewhat flat. LABORATORY VALUES: White count 15.3, hemoglobin 12.3, platelets are 284, neutrophils of 85. Glucose of 115, creatinine is 0.8. IMAGING: No radiological studies. IMPRESSION: 1. Right arm abscess, status post incision and drainage on 06/30/2016. States he has had a tetanus within the last 5 years. 2. Leukocytosis, but now he is status post Decadron. 3. Hypertension. 4. Questionable history of Staph. RECOMMENDATIONS: We will continue the Zosyn. Again, I added vancomycin on 06/30/2016. We will follow up labs and cultures and continue with local wound care. Thank you for allowing me to participate in this patient's care. If you have any questions, please do not hesitate to contact me. CHARLA MASSEY MD DR: SANDIP/zoraida JOB#: [id number] / [id number]
--- NOTE | 2016-07-02 10:42 | PDOC ---
PROGRESS NOTES Chief Complaint Chief Complaint CC: Left arm abscess Left forearm abscess, myositis S/P ID Leukocytosis htn anxiety d/o homelessness History of Present Illness History of Present Illness iv zosyn and vancomycin, I D following Pain control anxiety meds on wound vac needs social support Vitals Vitals Vital Signs Date Time Temp Pulse Resp B/P (MAP) Pulse Ox O2 Delivery O2 Flow Rate FiO2 07/02/16 08:45 18 Room Air 07/02/16 07:00 96.1 72 126/88 (101) 96 96.1 07/01/16 17:06 2.0 Physical Exam General: Alert, Oriented X3, mild distress Heart: Normal S1, Normal S2 Lungs: Clear Abdomen: Normal bowel sounds, Soft Extremities: No clubbing, Other (wound wac, pulse intact in extremities. ) Labs LABS Laboratory Tests Test 07/02/16 03:45 Sodium Level 140 mmol/L (136-145) Potassium Level 3.7 mmol/L (3.5-5.1) Chloride Level 105 mmol/L (98-107) Carbon Dioxide Level 28 mmol/L (21-32) Anion Gap 7 (6-14) Blood Urea Nitrogen 12 mg/dL (8-26) Creatinine 0.7 mg/dL (0.7-1.3) Estimated GFR (Cockcroft-Gault) 120.4 Glucose Level 91 mg/dL (70-99) Calcium Level 8.6 mg/dL (8.5-10.1) Vancomycin Level Trough 8.7 mcg/mL (10.0-20.0) Vancomycin Last Dose Date Vancomycin Last Dose Time Review of Systems Review of Systems anxiety arm pain 08/31 no event Comment Review of Relevant I have reviewed the following items mell (where applicable) has been applied. Labs Laboratory Tests Test 07/01/16 08:05 07/02/16 03:45 White Blood Count 15.3 x10^3/uL (4.0-11.0) Red Blood Count 4.04 x10^6/uL (4.30-5.70) Hemoglobin 12.3 g/dL (13.0-17.5) Hematocrit 35.4 % (39.0-53.0) Mean Corpuscular Volume 88 fL (79-100) Mean Corpuscular Hemoglobin 31 pg (25-35) Mean Corpuscular Hemoglobin Concent 35 g/dL (31-37) Red Cell Distribution Width 12.8 % (11.5-14.5) Platelet Count 284 x10^3/uL (140-400) Neutrophils (%) (Auto) 85 % (31-73) Lymphocytes (%) (Auto) 7 % (24-48) Monocytes (%) (Auto) 7 % (0-9) Eosinophils (%) (Auto) 0 % (0-3) Basophils (%) (Auto) 0 % (0-3) Neutrophils # (Auto) 13.1 x10^3uL (1.8-7.7) Lymphocytes # (Auto) 1.1 x10^3/uL (1.0-4.8) Monocytes # (Auto) 1.1 x10^3/uL (0.0-1.1) Eosinophils # (Auto) 0.0 x10^3/uL (0.0-0.7) Basophils # (Auto) 0.0 x10^3/uL (0.0-0.2) Segmented Neutrophils % 83 % (35-66) Band Neutrophils % 3 % (0-9) Lymphocytes % 7 % (24-48) Monocytes % 7 % (0-10) Platelet Estimate Adequate (ADEQUATE) Sodium Level 136 mmol/L (136-145) 140 mmol/L (136-145) Potassium Level 4.1 mmol/L (3.5-5.1) 3.7 mmol/L (3.5-5.1) Chloride Level 102 mmol/L (98-107) 105 mmol/L (98-107) Carbon Dioxide Level 28 mmol/L (21-32) 28 mmol/L (21-32) Anion Gap 6 (6-14) 7 (6-14) Blood Urea Nitrogen 13 mg/dL (8-26) 12 mg/dL (8-26) Creatinine 0.8 mg/dL (0.7-1.3) 0.7 mg/dL (0.7-1.3) Estimated GFR (Cockcroft-Gault) 103.2 120.4 Glucose Level 115 mg/dL (70-99) 91 mg/dL (70-99) Calcium Level 8.7 mg/dL (8.5-10.1) 8.6 mg/dL (8.5-10.1) Vancomycin Level Trough 8.7 mcg/mL (10.0-20.0) Vancomycin Last Dose Date Vancomycin Last Dose Time Laboratory Tests Test 07/02/16 03:45 Sodium Level 140 mmol/L (136-145) Potassium Level 3.7 mmol/L (3.5-5.1) Chloride Level 105 mmol/L (98-107) Carbon Dioxide Level 28 mmol/L (21-32) Anion Gap 7 (6-14) Blood Urea Nitrogen 12 mg/dL (8-26) Creatinine 0.7 mg/dL (0.7-1.3) Estimated GFR (Cockcroft-Gault) 120.4 Glucose Level 91 mg/dL (70-99) Calcium Level 8.6 mg/dL (8.5-10.1) Vancomycin Level Trough 8.7 mcg/mL (10.0-20.0) Vancomycin Last Dose Date Vancomycin Last Dose Time Microbiology 06/30/16 Gram Stain - Final, Complete Medications Current Medications Morphine Sulfate 2 mg PRN Q2HR PRN IV PAIN Last administered on 07/01/16 20:22 ; Start 06/30/16 at 13:30 Sodium Chloride 1,000 ml @ 75 mls/hr [id number] IV Last administered on 15:19; Start 06/30/16 at 13:30 Piperacillin Sod/ Tazobactam Sod 3.375 gm/Sodium Chloride 50 ml @ 100 mls/hr Q6HRS IV Last administered on 07/02/16 05:44; Start 06/30/16 at 18:00 Vancomycin HCl (Vanco Per Pharmacy) 1 each PRN DAILY PRN MC SEE COMMENTS Last administered on 07/02/16 05:11; Start 06/30/16 at 21:00 Vancomycin HCl 2 gm/Sodium Chloride 500 ml @ 250 mls/hr 1X ONCE IV Last administered on 06/30/16 16:27; Start 06/30/16 at 16:30; Stop 06/30/16 at 18:29; Status DC Vancomycin HCl 1.25 gm/Sodium Chloride 250 ml @ 167 mls/hr Q12H IV Last administered on 07/01/16 17:06; Start 07/01/16 at 04:30; Stop 07/02/16 at 05:02 ; Status DC Vancomycin HCl 1 each 1X ONCE MC ; Start 07/02/16 at 04:00; Stop 07/02/16 at 04 :01; Status DC Ondansetron HCl (Zofran) 4 mg PRN Q6HRS PRN IV NAUSEA/VOMITING; Start 06/30/16 at 17:30; Stop 07/01/16 at 17:29; Status DC Fentanyl Citrate (Fentanyl 2ml Vial) 25 mcg PRN Q5MIN PRN IV MILD PAIN; Start 06/30/16 at 17:30; Stop 07/01/16 at 17:29; Status DC Fentanyl Citrate (Fentanyl 2ml Vial) 50 mcg PRN Q5MIN PRN IV MODERATE PAIN Last administered on 06/30/16 20:19; Start 06/30/16 at 17:30; Stop 07/01/16 at 17 :29; Status DC Morphine Sulfate 1 mg PRN Q10MIN PRN IV SEVERE PAIN Last administered on 20:14; Start 06/30/16 at 17:30; Stop 07/01/16 at 17:29; Status DC Ringer's Solution 1,000 ml @ 0 mls/hr Q0M IV ; Start 06/30/16 at 17:25; Stop 12/08 at 05:24; Status DC Lidocaine HCl 2 ml PRN 1X PRN ID PRIOR TO IV START; Start 06/30/16 at 17:30; Stop 07/01/16 at 17:29; Status DC Hydromorphone HCl (Dilaudid) 0.5 mg PRN Q10MIN PRN IV SEV PAIN, Second choice Last administered on 07/01/16 17:06; Start 06/30/16 at 17:30; Stop 07/01/16 at 17:29; Status DC Prochlorperazine Edisylate (Compazine) 5 mg PACU PRN PRN IV NAUSEA, MRX1; Start 06/30/16 at 17:30; Stop 07/01/16 at 17:29; Status DC Lidocaine HCl (Lidocaine HCl 2% Abboject) 100 mg STK-MED ONCE .ROUTE ; Start 06/30/16 at 18:00; Stop 06/30/16 at 18:01; Status DC Ondansetron HCl (Zofran) 4 mg STK-MED ONCE .ROUTE ; Start 06/30/16 at 18:01; Stop 06/30/16 at 18:02; Status DC Dexamethasone Sodium Phosphate (Decadron) 20 mg STK-MED ONCE .ROUTE ; Start 06/30 at 18:01; Stop 06/30/16 at 18:02; Status DC Propofol 20 ml @ As Directed STK-MED ONCE IV ; Start 06/30/16 at 18:01; Stop 06/30 at 18:02; Status DC Fentanyl Citrate (Fentanyl 2ml Vial) 100 mcg STK-MED ONCE .ROUTE ; Start at 18:02; Stop 06/30/16 at 18:03; Status DC Fentanyl Citrate (Fentanyl 2ml Vial) 100 mcg STK-MED ONCE .ROUTE ; Start at 18:38; Stop 06/30/16 at 18:39; Status DC Sevoflurane (Ultane) 60 ml STK-MED ONCE IH ; Start 06/30/16 at 19:20; Stop at 19:21; Status DC Hydromorphone HCl (Dilaudid) 0.4 mg PRN Q4HRS PRN IVP PAIN Last administered on 07/02/16t 08:45; Start 06/30/16 at 19:45 Vancomycin HCl 1.25 gm/Sodium Chloride 250 ml @ 167 mls/hr Q8HRS IV Last administered on 07/02/16 06:33; Start 07/02/16 at 06:00 Vancomycin HCl 1 each 1X ONCE MC ; Start 07/03/16 at 05:30; Stop 07/03/16 at 05 :31 Alprazolam (Xanax) 2 mg TID PO ; Start 07/02/16 at 11:00 Active Scripts Active Reported Xanax (Alprazolam) 2 Mg Tablet 1 Tab PO TID Lisinopril 10 Mg Tablet 1 Tab PO DAILY Vitals/I & O Vital Sign - Last 24 Hours 07/01/16 07/01/16 07/01/16 07/01/16 11:03 15:20 17:06 19:00 Temp 98.0 98.0 97.5 98.0 98.0 97.5 Pulse 87 87 83 Resp 14 15 20 B/P (MAP) 101/66 (78) 104/66 (79) 120/76 (91) Pulse Ox 95 95 95 99 O2 Delivery Room Air Room Air Room Air Room Air O2 Flow Rate 2.0 07/01/16 07/01/16 07/01/16 07/01/16 20:15 20:22 21:00 23:00 Temp 97.5 97.5 Pulse 75 Resp 20 18 20 B/P (MAP) 82/54 (63) Pulse Ox 93 94 99 O2 Delivery Room Air Room Air Room Air Room Air 07/02/16 07/02/16 07/02/16 07/02/16 03:29 04:14 05:00 07:00 Temp 97.5 96.1 97.5 96.1 Pulse 71 72 Resp 20 20 18 20 B/P (MAP) 110/62 (78) 126/88 (101) Pulse Ox 92 95 95 96 O2 Delivery Room Air Room Air Room Air Room Air 07/02/16 08:45 Resp 18 O2 Delivery Room Air Intake and Output 07/01/16 07/01/16 07/02/16 15:00 23:00 07:00 Intake Total 240 ml 100 ml 200 ml Output Total 1700 ml 900 ml Balance 240 ml -1600 ml -700 ml CARLA COLON MD July 02, 2016 10:42
[2016-07-02] MEDS: IV NORMAL SALINE 1000ML BAG 1,000 ML IV SCH ×2 (10:47→18:50)
[2016-07-02] MEDS ORDERED: ALPRAZolam 1 MG TABLET PO SCH (11:00)
--- NOTE | 2016-07-02 11:05 | PDOC ---
Infectious Disease Note Subjective Subjective Better. Still some pain ROS ROS GEN: Denies fevers, chills, sweats HEENT: Denies blurred vision, sore throat CV: Denies chest pain RESP: Denies shortness of air, cough GI: Denies n/v/d. Maybe a little early constipation NEURO: Denies confusion, dizziness MSK: Denies weakness Vital Sign Vital Signs Vital Signs Date Time Temp Pulse Resp B/P (MAP) Pulse Ox O2 Delivery O2 Flow Rate FiO2 07/02/16 09:15 18 Room Air 07/02/16 07:00 96.1 72 126/88 (101) 96 96.1 07/01/16 17:06 2.0 Physical Exam PHYSICAL EXAM GENERAL: NAD, Alert, on side of bed HEENT: PERRL, OC/OP -clear NECK: Supple, no JVD, no LN LUNGS: Clear HEART: S1S2, no gallop, no murmur ABD: Soft, NT, no organomegaly, no rebound EXT: No edema, no cyanosis. Vac to LUE - with 2 plus edema WILDLIFE REHABILITATOR: Alert, oriented x 3, no focal neurologic deficit SKIN: No rash IV: ok Labs Lab Laboratory Tests Test 07/02/16 03:45 Sodium Level 140 mmol/L (136-145) Potassium Level 3.7 mmol/L (3.5-5.1) Chloride Level 105 mmol/L (98-107) Carbon Dioxide Level 28 mmol/L (21-32) Anion Gap 7 (6-14) Blood Urea Nitrogen 12 mg/dL (8-26) Creatinine 0.7 mg/dL (0.7-1.3) Estimated GFR (Cockcroft-Gault) 120.4 Glucose Level 91 mg/dL (70-99) Calcium Level 8.6 mg/dL (8.5-10.1) Vancomycin Level Trough 8.7 mcg/mL (10.0-20.0) Vancomycin Last Dose Date Vancomycin Last Dose Time Objective Assessment Right arm abscess s/p I and D 06/30. States has had Tetanus within 5 years. Cults pending Leukocytosis - now s/p Decadron HTN ? h/o Staph Plan Plan of Care Cont Zosyn. I added Vanc 06/30 Cont wound care F/u labs and cults CHARLA MASSEY MD July 02, 2016 11:05
[2016-07-02] MEDS: ALPRAZolam 1 MG TABLET PO SCH ×2 (11:19→20:03)
--- NOTE | 2016-07-02 12:40 | PDOC ---
PROGRESS NOTES Subjective Subjective Doing better today, less pain. Objective Vital Signs Vital Signs Date Time Temp Pulse Resp B/P (MAP) Pulse Ox O2 Delivery O2 Flow Rate FiO2 07/02/16 09:15 18 Room Air 07/02/16 07:00 96.1 72 126/88 (101) 96 96.1 07/01/16 17:06 2.0 Physical Exam Left forearm wound vac intact with suction on. Able to make a full composite fist and extend all digits. Mild erythema and warmth to mid forearm. Peripheral pulses and light touch sensation intact. Labs Laboratory Tests Test 07/01/16 08:05 07/02/16 03:45 White Blood Count 15.3 x10^3/uL (4.0-11.0) Red Blood Count 4.04 x10^6/uL (4.30-5.70) Hemoglobin 12.3 g/dL (13.0-17.5) Hematocrit 35.4 % (39.0-53.0) Mean Corpuscular Volume 88 fL (79-100) Mean Corpuscular Hemoglobin 31 pg (25-35) Mean Corpuscular Hemoglobin Concent 35 g/dL (31-37) Red Cell Distribution Width 12.8 % (11.5-14.5) Platelet Count 284 x10^3/uL (140-400) Neutrophils (%) (Auto) 85 % (31-73) Lymphocytes (%) (Auto) 7 % (24-48) Monocytes (%) (Auto) 7 % (0-9) Eosinophils (%) (Auto) 0 % (0-3) Basophils (%) (Auto) 0 % (0-3) Neutrophils # (Auto) 13.1 x10^3uL (1.8-7.7) Lymphocytes # (Auto) 1.1 x10^3/uL (1.0-4.8) Monocytes # (Auto) 1.1 x10^3/uL (0.0-1.1) Eosinophils # (Auto) 0.0 x10^3/uL (0.0-0.7) Basophils # (Auto) 0.0 x10^3/uL (0.0-0.2) Segmented Neutrophils % 83 % (35-66) Band Neutrophils % 3 % (0-9) Lymphocytes % 7 % (24-48) Monocytes % 7 % (0-10) Platelet Estimate Adequate (ADEQUATE) Sodium Level 136 mmol/L (136-145) 140 mmol/L (136-145) Potassium Level 4.1 mmol/L (3.5-5.1) 3.7 mmol/L (3.5-5.1) Chloride Level 102 mmol/L (98-107) 105 mmol/L (98-107) Carbon Dioxide Level 28 mmol/L (21-32) 28 mmol/L (21-32) Anion Gap 6 (6-14) 7 (6-14) Blood Urea Nitrogen 13 mg/dL (8-26) 12 mg/dL (8-26) Creatinine 0.8 mg/dL (0.7-1.3) 0.7 mg/dL (0.7-1.3) Estimated GFR (Cockcroft-Gault) 103.2 120.4 Glucose Level 115 mg/dL (70-99) 91 mg/dL (70-99) Calcium Level 8.7 mg/dL (8.5-10.1) 8.6 mg/dL (8.5-10.1) Vancomycin Level Trough 8.7 mcg/mL (10.0-20.0) Vancomycin Last Dose Date Vancomycin Last Dose Time Laboratory Tests Test 07/02/16 03:45 Sodium Level 140 mmol/L (136-145) Potassium Level 3.7 mmol/L (3.5-5.1) Chloride Level 105 mmol/L (98-107) Carbon Dioxide Level 28 mmol/L (21-32) Anion Gap 7 (6-14) Blood Urea Nitrogen 12 mg/dL (8-26) Creatinine 0.7 mg/dL (0.7-1.3) Estimated GFR (Cockcroft-Gault) 120.4 Glucose Level 91 mg/dL (70-99) Calcium Level 8.6 mg/dL (8.5-10.1) Vancomycin Level Trough 8.7 mcg/mL (10.0-20.0) Vancomycin Last Dose Date Vancomycin Last Dose Time Assessment Assessment POD #2 s/p I&D left forearm abscess Problems: Plan Plan of Care Continue wound vac and IV abx per ID. Plan to return to OR tomorrow at 1:00pm for I&D and wound vac change. JEFFERY LÓPEZ July 02, 2016 12:40
[2016-07-02 13:00] VITALS: BP 130/78
[2016-07-02 15:00] VITALS: BP 130/78
[2016-07-02 23:00] VITALS: BP 113/68
[2016-07-03] VITALS (12 sets, daily range): BP systolic 104–141; BP diastolic 30–93
[2016-07-03] MEDS: PIPERACILLIN/TAZOBACTAM 3.375 GM in IV NORMAL SALINE 50ML 50 ML IV SCH ×4 (00:56→17:43)
[2016-07-03] MEDS: HYDROmorphone 2 MG/ML VIAL IVP PRN ×4 (03:34→20:04)
[2016-07-03 05:55] LABS: BASO # 0.1 x10^3/uL (0.0-0.2); BASO % 1 % (0-3); EOS % 4 % (0-3); HEMATOCRIT 33.8 % (39.0-53.0); HEMOGLOBIN 11.7 g/dL (13.0-17.5); LYMPH # 2.6 x10^3/uL (1.0-4.8); LYMPH % 35 % (24-48); MEAN CORPUSCULAR HEMOGLOBIN 30 pg (25-35); MEAN CORPUSCULAR HGB CONC 35 g/dL (31-37); MEAN CORPUSCULAR VOLUME 87 fL (79-100); MONO % 11 % (0-9); NEUT % 49 % (31-73); PLATELET COUNT 341 x10^3/uL (140-400); RED BLOOD COUNT 3.87 x10^6/uL (4.30-5.70); RED CELL DISTRIBUTION WIDTH 12.5 % (11.5-14.5); WHITE BLOOD COUNT 7.4 x10^3/uL (4.0-11.0)
[2016-07-03 06:14] LABS: CALCIUM 8.9 mg/dL (8.5-10.1); CREATININE 0.8 mg/dL (0.7-1.3); GFR 103.2; POTASSIUM 4.4 mmol/L (3.5-5.1)
[2016-07-03] MEDS: VANCOMYCIN 1.25 GM in IV NORMAL SALINE 250ML 250 ML IV SCH ×3 (06:28→22:02)
[2016-07-03] MEDS: VANCOMYCIN PER PHARMACY MC PRN (06:30)
[2016-07-03] MEDS ORDERED: LIDOCAINE 1% 1 ML SYRINGE. ID PRN (07:00)
[2016-07-03] MEDS ORDERED: PROCHLORPERAZINE 10 MG/2 ML VIAL. IV PRN (07:00)
[2016-07-03] MEDS ORDERED: fentaNYL PF VIAL 100 MCG/2 ML VIAL IV PRN (07:00)
[2016-07-03] MEDS ORDERED: IV RINGERS,LACTATED 1000ML 1,000 ML IV SCH (07:00)
[2016-07-03] MEDS ORDERED: HYDROmorphone 2 MG/ML VIAL IV PRN (07:00)
[2016-07-03] MEDS ORDERED: ONDANSETRON PF 4 MG/2 ML VIAL. IV PRN (07:00)
[2016-07-03] MEDS ORDERED: MORPHINE SULFATE 2 MG/ML DISP.SYRIN. IV PRN (07:00)
[2016-07-03] MEDS: ALPRAZolam 1 MG TABLET PO SCH ×3 (07:57→20:10)
[2016-07-03] MEDS ORDERED: LIDOCAINE 2% 100 MG/5 ML SYRINGE. ONE (11:58)
[2016-07-03] MEDS ORDERED: fentaNYL PF VIAL 100 MCG/2 ML VIAL ONE (11:58)
[2016-07-03] MEDS ORDERED: ONDANSETRON PF 4 MG/2 ML VIAL. ONE (11:58)
[2016-07-03] MEDS ORDERED: PROPOFOL 10 MG/ML (20ML) VIAL. IV ONE (11:58)
[2016-07-03] MEDS ORDERED: DEXAMETHASONE SOD PHOS 20 MG/5 ML VIAL. ONE (11:58)
[2016-07-03] MEDS ORDERED: SEVOFLURANE 16 TO 30 MINUTES. IH ONE (13:41)
[2016-07-03] MEDS: fentaNYL PF VIAL 100 MCG/2 ML VIAL IV PRN ×2 (14:01→14:14)
--- NOTE | 2016-07-03 14:05 | PDOC ---
BRIEF OPERATIVE NOTE Date: July 03, 2016 Pre-Op Diagnosis left forearm abscess Post-Op Diagnosis same Procedure Performed I &D, Excisional debridement of muscle, wound vac placement. Surgeon Cristina Swan MD Trimming Inspector none Blood Loss 50 cc Specimens Obtained non Findings mostly healthy muscle Complications none Additional Remarks will plan to return to the OR on wednesday versus do a wound vac change on the floor. CRISTINA SWAN MD July 03, 2016 14:05
--- NOTE | 2016-07-03 14:12 | PDOC4 ---
Operative Note Operative Note Operative Report Date of Operation: 07/03/2016 Preoperative Diagnosis: left forearm abscess Postoperative Diagnosis: left forearm abscess, myositis. Abscess dimensions: 13 x 5 cm Operation Performed: 1. Debridement of muscle and / or fascia, including epidermis, dermis, and subcutaneous tissue, first; 20 square cms or less, CPT 47500 2. Negative pressure wound therapy; total wound(s) surface area greater than 50 square centimeters, CPT 13140 Surgeon: Cristina Swan MD Manager Academic: none Anesthesia: General Estimated Blood Loss: 50 cc Surgical Indication: The patient is a 50 year old right-hand dominant male with a left forearm abscess. He presented to the ER toxic appearing with a large fluctuant mass in his forearm. After discussing the risks and benefits of treatment the decision was made to take him to the OR to debride his abscess. He has had a wound vac in place for the past few days. He is on antibiotics. Description of Procedure: The patient was identified, marked, and the procedure was reconfirmed by myself prior to taking them to the operating room. IV antibiotics were running from the floor already. A timeout was performed. The patient was positioned appropriately and underwent adequate general anesthesia. A nonsterile tourniquet was applied to the operative extremity. The extremity was prepped and draped in a standard surgical fashion. The wound vac sponge was removed prior to prep. The entire wound bed was measured as 13 inches long by 5 inches wide. The fascia and muscles of the brachioradialis and ECRL were partially necrotic and noncontractile. The fascia, muscles, and surrounding tissues were excisionally debrided with a knife, currettes, and ronguers until healthy bleeding contractile tissue was encountered. The area was irrigated with 6 liters of sterile saline before placing a wound vac sponge over the area to seal it. The wound vac was placed on intermittent suction and the seal was good. Disposition: The patient was transferred to the bed and taken to the recovery room awake, alert, and in stable condition. Complications: None Post-operative Plan: ID consult, IV antibiotics. Will repeat debridement In 2-3 days versus bedside wound vac change. CRISTINA SWAN MD July 03, 2016 14:12
--- NOTE | 2016-07-03 14:18 | PDOC ---
PROGRESS NOTES Chief Complaint Chief Complaint CC: Left arm abscess Left forearm abscess, myositis S/P ID Leukocytosis htn anxiety d/o homelessness History of Present Illness History of Present Illness iv zosyn and vancomycin, I D following Pain control anxiety meds on wound vac needs social support Vitals Vitals Vital Signs Date Time Temp Pulse Resp B/P (MAP) Pulse Ox O2 Delivery O2 Flow Rate FiO2 07/03/16 14:14 20 99 Nasal Cannula 2.0 07/03/16 14:08 78 166/84 07/03/16 13:54 97.6 97.6 Physical Exam General: Alert, Oriented X3, mild distress Heart: Normal S1, Normal S2 Lungs: Clear Abdomen: Normal bowel sounds, Soft Extremities: No clubbing, Other (wound wac, pulse intact in extremities. ) Skin: No rashes Labs LABS Laboratory Tests Test 07/03/16 05:10 07/03/16 05:40 Sodium Level 140 mmol/L (136-145) Potassium Level 4.4 mmol/L (3.5-5.1) Chloride Level 104 mmol/L (98-107) Carbon Dioxide Level 30 mmol/L (21-32) Anion Gap 6 (6-14) Blood Urea Nitrogen 10 mg/dL (8-26) Creatinine 0.8 mg/dL (0.7-1.3) Estimated GFR (Cockcroft-Gault) 103.2 Glucose Level 83 mg/dL (70-99) Calcium Level 8.9 mg/dL (8.5-10.1) White Blood Count 7.4 x10^3/uL (4.0-11.0) Red Blood Count 3.87 x10^6/uL (4.30-5.70) Hemoglobin 11.7 g/dL (13.0-17.5) Hematocrit 33.8 % (39.0-53.0) Mean Corpuscular Volume 87 fL (79-100) Mean Corpuscular Hemoglobin 30 pg (25-35) Mean Corpuscular Hemoglobin Concent 35 g/dL (31-37) Red Cell Distribution Width 12.5 % (11.5-14.5) Platelet Count 341 x10^3/uL (140-400) Neutrophils (%) (Auto) 49 % (31-73) Lymphocytes (%) (Auto) 35 % (24-48) Monocytes (%) (Auto) 11 % (0-9) Eosinophils (%) (Auto) 4 % (0-3) Basophils (%) (Auto) 1 % (0-3) Neutrophils # (Auto) 3.7 x10^3uL (1.8-7.7) Lymphocytes # (Auto) 2.6 x10^3/uL (1.0-4.8) Monocytes # (Auto) 0.8 x10^3/uL (0.0-1.1) Eosinophils # (Auto) 0.3 x10^3/uL (0.0-0.7) Basophils # (Auto) 0.1 x10^3/uL (0.0-0.2) Vancomycin Level Trough 16.5 mcg/mL (10.0-20.0) Vancomycin Last Dose Date 07/02/16 Vancomycin Last Dose Time 2200 Assessment and Plan Assessmemt and Plan to OR again today repeat I+D Problems: Comment Review of Relevant I have reviewed the following items mell (where applicable) has been applied. Labs Laboratory Tests Test 07/02/16 03:45 07/03/16 05:10 07/03/16 05:40 Sodium Level 140 mmol/L (136-145) 140 mmol/L (136-145) Potassium Level 3.7 mmol/L (3.5-5.1) 4.4 mmol/L (3.5-5.1) Chloride Level 105 mmol/L (98-107) 104 mmol/L (98-107) Carbon Dioxide Level 28 mmol/L (21-32) 30 mmol/L (21-32) Anion Gap 7 (6-14) 6 (6-14) Blood Urea Nitrogen 12 mg/dL (8-26) 10 mg/dL (8-26) Creatinine 0.7 mg/dL (0.7-1.3) 0.8 mg/dL (0.7-1.3) Estimated GFR (Cockcroft-Gault) 120.4 103.2 Glucose Level 91 mg/dL (70-99) 83 mg/dL (70-99) Calcium Level 8.6 mg/dL (8.5-10.1) 8.9 mg/dL (8.5-10.1) Vancomycin Level Trough 8.7 mcg/mL (10.0-20.0) 16.5 mcg/mL (10.0-20.0) Vancomycin Last Dose Date 07/02/16 Vancomycin Last Dose Time 2200 White Blood Count 7.4 x10^3/uL (4.0-11.0) Red Blood Count 3.87 x10^6/uL (4.30-5.70) Hemoglobin 11.7 g/dL (13.0-17.5) Hematocrit 33.8 % (39.0-53.0) Mean Corpuscular Volume 87 fL (79-100) Mean Corpuscular Hemoglobin 30 pg (25-35) Mean Corpuscular Hemoglobin Concent 35 g/dL (31-37) Red Cell Distribution Width 12.5 % (11.5-14.5) Platelet Count 341 x10^3/uL (140-400) Neutrophils (%) (Auto) 49 % (31-73) Lymphocytes (%) (Auto) 35 % (24-48) Monocytes (%) (Auto) 11 % (0-9) Eosinophils (%) (Auto) 4 % (0-3) Basophils (%) (Auto) 1 % (0-3) Neutrophils # (Auto) 3.7 x10^3uL (1.8-7.7) Lymphocytes # (Auto) 2.6 x10^3/uL (1.0-4.8) Monocytes # (Auto) 0.8 x10^3/uL (0.0-1.1) Eosinophils # (Auto) 0.3 x10^3/uL (0.0-0.7) Basophils # (Auto) 0.1 x10^3/uL (0.0-0.2) Laboratory Tests Test 07/03/16 05:10 07/03/16 05:40 Sodium Level 140 mmol/L (136-145) Potassium Level 4.4 mmol/L (3.5-5.1) Chloride Level 104 mmol/L (98-107) Carbon Dioxide Level 30 mmol/L (21-32) Anion Gap 6 (6-14) Blood Urea Nitrogen 10 mg/dL (8-26) Creatinine 0.8 mg/dL (0.7-1.3) Estimated GFR (Cockcroft-Gault) 103.2 Glucose Level 83 mg/dL (70-99) Calcium Level 8.9 mg/dL (8.5-10.1) White Blood Count 7.4 x10^3/uL (4.0-11.0) Red Blood Count 3.87 x10^6/uL (4.30-5.70) Hemoglobin 11.7 g/dL (13.0-17.5) Hematocrit 33.8 % (39.0-53.0) Mean Corpuscular Volume 87 fL (79-100) Mean Corpuscular Hemoglobin 30 pg (25-35) Mean Corpuscular Hemoglobin Concent 35 g/dL (31-37) Red Cell Distribution Width 12.5 % (11.5-14.5) Platelet Count 341 x10^3/uL (140-400) Neutrophils (%) (Auto) 49 % (31-73) Lymphocytes (%) (Auto) 35 % (24-48) Monocytes (%) (Auto) 11 % (0-9) Eosinophils (%) (Auto) 4 % (0-3) Basophils (%) (Auto) 1 % (0-3) Neutrophils # (Auto) 3.7 x10^3uL (1.8-7.7) Lymphocytes # (Auto) 2.6 x10^3/uL (1.0-4.8) Monocytes # (Auto) 0.8 x10^3/uL (0.0-1.1) Eosinophils # (Auto) 0.3 x10^3/uL (0.0-0.7) Basophils # (Auto) 0.1 x10^3/uL (0.0-0.2) Vancomycin Level Trough 16.5 mcg/mL (10.0-20.0) Vancomycin Last Dose Date 07/02/16 Vancomycin Last Dose Time 2200 Microbiology 06/30/16 AFB Specimen Processing Tissue - Final, Resulted 06/30/16 Acid Fast Bacilli Culture, Resulted Pending 06/30/16 Gram Stain - Final, Resulted 06/30/16 Fungal Culture, Resulted Pending 06/30/16 Fungal Culture Result 1, Resulted Pending Medications Current Medications Morphine Sulfate 2 mg PRN Q2HR PRN IV MILD TO MODERATE PAIN Last administered on 07/01/16 20:22; Start 06/30/16 at 13:30 Sodium Chloride 1,000 ml @ 75 mls/hr [id number] IV Last administered on 18:50; Start 06/30/16 at 13:30 Piperacillin Sod/ Tazobactam Sod 3.375 gm/Sodium Chloride 50 ml @ 100 mls/hr Q6HRS IV Last administered on 07/03/16 11:41; Start 06/30/16 at 18:00 Vancomycin HCl (Vanco Per Pharmacy) 1 each PRN DAILY PRN MC SEE COMMENTS Last administered on 07/03/16 06:30; Start 06/30/16 at 21:00 Vancomycin HCl 2 gm/Sodium Chloride 500 ml @ 250 mls/hr 1X ONCE IV Last administered on 06/30/16 16:27; Start 06/30/16 at 16:30; Stop 06/30/16 at 18:29; Status DC Vancomycin HCl 1.25 gm/Sodium Chloride 250 ml @ 167 mls/hr Q12H IV Last administered on 07/01/16 17:06; Start 07/01/16 at 04:30; Stop 07/02/16 at 05:02 ; Status DC Vancomycin HCl 1 each 1X ONCE MC ; Start 07/02/16 at 04:00; Stop 07/02/16 at 04 :01; Status DC Ondansetron HCl (Zofran) 4 mg PRN Q6HRS PRN IV NAUSEA/VOMITING; Start 06/30/16 at 17:30; Stop 07/01/16 at 17:29; Status DC Fentanyl Citrate (Fentanyl 2ml Vial) 25 mcg PRN Q5MIN PRN IV MILD PAIN; Start 06/30/16 at 17:30; Stop 07/01/16 at 17:29; Status DC Fentanyl Citrate (Fentanyl 2ml Vial) 50 mcg PRN Q5MIN PRN IV MODERATE PAIN Last administered on 06/30/16 20:19; Start 06/30/16 at 17:30; Stop 07/01/16 at 17 :29; Status DC Morphine Sulfate 1 mg PRN Q10MIN PRN IV SEVERE PAIN Last administered on 20:14; Start 06/30/16 at 17:30; Stop 07/01/16 at 17:29; Status DC Ringer's Solution 1,000 ml @ 0 mls/hr Q0M IV ; Start 06/30/16 at 17:25; Stop 12/08 at 05:24; Status DC Lidocaine HCl 2 ml PRN 1X PRN ID PRIOR TO IV START; Start 06/30/16 at 17:30; Stop 07/01/16 at 17:29; Status DC Hydromorphone HCl (Dilaudid) 0.5 mg PRN Q10MIN PRN IV SEV PAIN, Second choice Last administered on 07/01/16 17:06; Start 06/30/16 at 17:30; Stop 07/01/16 at 17:29; Status DC Prochlorperazine Edisylate (Compazine) 5 mg PACU PRN PRN IV NAUSEA, MRX1; Start 06/30/16 at 17:30; Stop 07/01/16 at 17:29; Status DC Lidocaine HCl (Lidocaine HCl 2% Abboject) 100 mg STK-MED ONCE .ROUTE ; Start 06/30/16 at 18:00; Stop 06/30/16 at 18:01; Status DC Ondansetron HCl (Zofran) 4 mg STK-MED ONCE .ROUTE ; Start 06/30/16 at 18:01; Stop 06/30/16 at 18:02; Status DC Dexamethasone Sodium Phosphate (Decadron) 20 mg STK-MED ONCE .ROUTE ; Start 06/30 at 18:01; Stop 06/30/16 at 18:02; Status DC Propofol 20 ml @ As Directed STK-MED ONCE IV ; Start 06/30/16 at 18:01; Stop 06/30 at 18:02; Status DC Fentanyl Citrate (Fentanyl 2ml Vial) 100 mcg STK-MED ONCE .ROUTE ; Start at 18:02; Stop 06/30/16 at 18:03; Status DC Fentanyl Citrate (Fentanyl 2ml Vial) 100 mcg STK-MED ONCE .ROUTE ; Start at 18:38; Stop 06/30/16 at 18:39; Status DC Sevoflurane (Ultane) 60 ml STK-MED ONCE IH ; Start 06/30/16 at 19:20; Stop at 19:21; Status DC Hydromorphone HCl (Dilaudid) 0.4 mg PRN Q4HRS PRN IVP MODERATE TO SEVERE PAIN Last administered on 07/03/16 08:00; Start 06/30/16 at 19:45 Vancomycin HCl 1.25 gm/Sodium Chloride 250 ml @ 167 mls/hr Q8HRS IV Last administered on 07/03/16 13:32; Start 07/02/16 at 06:00 Vancomycin HCl 1 each 1X ONCE MC Last administered on 07/03/16 05:30; Start 07/03/16 at 05:30; Stop 07/03/16 at 05:31; Status DC Alprazolam (Xanax) 2 mg TID PO ; Start 07/02/16 at 11:00; Stop 07/02/16 at 11:00 ; Status DC Alprazolam (Xanax) 1 mg TID PO Last administered on 07/03/16 07:57; Start 01/08 at 11:00 Alprazolam (Xanax) 1 mg PRN Q8HRS PRN PO ANXIETY / AGITATION; Start 07/02/16 at 10:45 Ondansetron HCl (Zofran) 4 mg PRN Q6HRS PRN IV NAUSEA/VOMITING; Start 07/03/16 at 07:00; Stop 07/03/16 at 18:00 Fentanyl Citrate (Fentanyl 2ml Vial) 25 mcg PRN Q5MIN PRN IV MILD PAIN; Start 07/03/16 at 07:00; Stop 07/03/16 at 18:00 Fentanyl Citrate (Fentanyl 2ml Vial) 50 mcg PRN Q5MIN PRN IV MODERATE PAIN Last administered on 07/03/16 14:14; Start 07/03/16 at 07:00; Stop 07/03/16 at 18:00 Morphine Sulfate 1 mg PRN Q10MIN PRN IV SEVERE PAIN; Start 07/03/16 at 07:00; Stop 07/03/16 at 18:00 Ringer's Solution 1,000 ml @ 30 mls/hr Q24H IV ; Start 07/03/16 at 07:00; Stop 07/03/16 at 18:59 Lidocaine HCl 2 ml PRN 1X PRN ID PRIOR TO IV START; Start 07/03/16 at 07:00; Stop 07/03/16 at 18:00 Hydromorphone HCl (Dilaudid) 0.5 mg PRN Q10MIN PRN IV SEV PAIN, Second choice; Start 07/03/16 at 07:00; Stop 07/03/16 at 18:00 Prochlorperazine Edisylate (Compazine) 5 mg PACU PRN PRN IV NAUSEA, MRX1 Last administered on 07/03/16t 13:59; Start 07/03/16 at 07:00; Stop 07/03/16 at 18:00 Ondansetron HCl (Zofran) 4 mg PRN Q6HRS PRN IV NAUSEA/VOMITING; Start 07/06/16 at 07:00; Stop 07/07/16 at 06:59 Fentanyl Citrate (Fentanyl 2ml Vial) 25 mcg PRN Q5MIN PRN IV MILD PAIN; Start 07/06/16 at 07:00; Stop 07/07/16 at 06:59 Fentanyl Citrate (Fentanyl 2ml Vial) 50 mcg PRN Q5MIN PRN IV MODERATE PAIN; Start 07/06/16 at 07:00; Stop 07/07/16 at 06:59 Morphine Sulfate 1 mg PRN Q10MIN PRN IV SEVERE PAIN; Start 07/06/16 at 07:00; Stop 07/07/16 at 06:59 Ringer's Solution 1,000 ml @ 0 mls/hr Q0M IV ; Start 07/06/16 at 07:00; Stop at 18:59 Lidocaine HCl 2 ml PRN 1X PRN ID PRIOR TO IV START; Start 07/06/16 at 07:00; Stop 07/07/16 at 06:59 Hydromorphone HCl (Dilaudid) 0.5 mg PRN Q10MIN PRN IV SEV PAIN, Second choice; Start 07/06/16 at 07:00; Stop 07/07/16 at 06:59 Prochlorperazine Edisylate (Compazine) 5 mg PACU PRN PRN IV NAUSEA, MRX1; Start 07/06/16 at 07:00; Stop 07/07/16 at 06:59 Sevoflurane (Ultane) 15 ml STK-MED ONCE IH ; Start 07/03/16 at 13:41; Stop 07/03 at 13:42; Status DC Active Scripts Active Reported Xanax (Alprazolam) 2 Mg Tablet 1 Tab PO TID Lisinopril 10 Mg Tablet 1 Tab PO DAILY Vitals/I & O Vital Sign - Last 24 Hours 5/11/17 5/11/17 5/11/17 5/11/17 15:00 18:13 19:00 20:00 Temp 97.7 97.8 97.7 97.8 Pulse 65 85 Resp 18 18 18 B/P (MAP) 130/78 (95) Pulse Ox 99 97 O2 Delivery Room Air Room Air Room Air O2 Flow Rate 2.0 07/02/16 07/02/16 07/03/16 07/03/16 22:21 23:00 03:34 04:04 Temp 97.7 97.7 Pulse 75 Resp 21 20 B/P (MAP) 113/68 (83) Pulse Ox 97 97 97 97 O2 Delivery Room Air Room Air Room Air Room Air O2 Flow Rate 2.0 2.0 07/03/16 07/03/16 07/03/16 07/03/16 07:00 08:00 08:00 08:30 Temp 97.8 97.8 Pulse 71 Resp 18 18 B/P (MAP) 131/85 (100) Pulse Ox 95 O2 Delivery Room Air Room Air Room Air 07/03/16 07/03/16 07/03/16 07/03/16 09:27 11:33 12:41 13:54 Temp 97.8 97.7 97.4 97.6 97.8 97.7 97.4 97.6 Pulse 71 72 70 80 Resp 16 16 20 20 B/P (MAP) 131/85 (100) 131/85 (100) 143/88 131/87 Pulse Ox 95 92 96 98 O2 Delivery Room Air Room Air Room Air Simple Mask O2 Flow Rate 10 07/03/16 07/03/16 07/03/16 14:01 14:08 14:14 Pulse 78 Resp 20 20 20 B/P (MAP) 166/84 Pulse Ox 100 98 99 O2 Delivery Simple Mask Room Air Nasal Cannula O2 Flow Rate 10.0 2.0 Intake and Output 07/02/16 07/02/16 07/03/16 15:00 23:00 07:00 Intake Total 1050 ml 500 ml 1600 ml Output Total 1080 ml 1040 ml 1900 ml Balance -30 ml -540 ml -300 ml CARLA COLON MD July 03, 2016 14:18
[2016-07-04] MEDS: PIPERACILLIN/TAZOBACTAM 3.375 GM in IV NORMAL SALINE 50ML 50 ML IV SCH ×4 (00:02→18:03)
[2016-07-04 03:00] VITALS: BP 137/91
[2016-07-04] MEDS: HYDROmorphone 2 MG/ML VIAL IVP PRN ×5 (04:27→21:09)
[2016-07-04 05:36] LABS: CALCIUM 9.2 mg/dL (8.5-10.1); CREATININE 0.8 mg/dL (0.7-1.3); GFR 103.2; POTASSIUM 4.5 mmol/L (3.5-5.1)
[2016-07-04] MEDS: ALPRAZolam 1 MG TABLET PO PRN (05:39)
[2016-07-04] MEDS: VANCOMYCIN 1.25 GM in IV NORMAL SALINE 250ML 250 ML IV SCH ×3 (06:29→22:17)
[2016-07-04] MEDS: MORPHINE SULFATE 2 MG/ML DISP.SYRIN. IV PRN ×5 (06:33→22:22)
[2016-07-04 07:45] VITALS: BP 158/99
[2016-07-04] MEDS: ALPRAZolam 1 MG TABLET PO SCH ×3 (08:35→21:13)
[2016-07-04 11:00] VITALS: BP 138/83
[2016-07-04] MEDS: VANCOMYCIN PER PHARMACY MC PRN (11:07)
--- NOTE | 2016-07-04 11:16 | PDOC ---
Infectious Disease Note Subjective Subjective Comfortable at the moment Pain controlled with med ROS ROS GEN: Denies fevers, chills, sweats HEENT: Denies sore throat CV: Denies chest pain RESP: Denies shortness of air, cough GI: Denies n/v/d NEURO: Denies confusion, dizziness Vital Sign Vital Signs Vital Signs Date Time Temp Pulse Resp B/P (MAP) Pulse Ox O2 Delivery O2 Flow Rate FiO2 07/04/16 10:33 97 Room Air 2.0 07/04/16 07:45 97.5 83 16 158/99 (118) 97.5 Physical Exam PHYSICAL EXAM GENERAL: NAD HEENT: OC/OP pink LUNGS: Clear HEART: S1S2 ABD: Soft, NT EXT: LUE wound vac and post-op dressing dry and intact. BOOKKEEPING CLERK: Alert, oriented x 3, no focal neurologic deficit SKIN: No rash IV: ok Labs Lab Laboratory Tests Test 07/04/16 04:50 Sodium Level 138 mmol/L (136-145) Potassium Level 4.5 mmol/L (3.5-5.1) Chloride Level 102 mmol/L (98-107) Carbon Dioxide Level 29 mmol/L (21-32) Anion Gap 7 (6-14) Blood Urea Nitrogen 16 mg/dL (8-26) Creatinine 0.8 mg/dL (0.7-1.3) Estimated GFR (Cockcroft-Gault) 103.2 Glucose Level 114 mg/dL (70-99) Calcium Level 9.2 mg/dL (8.5-10.1) Micro AEROBIC CULT Final Final report AEROBIC RES 1 Final Eikenella corrodens Heavy growth AEROBIC RES 2 Final Diphtheroids Objective Assessment Right arm abscess s/p I and D 06/30; repeat I &D, excisional debridement skin, subcutaneous tissue, muscle and fascia. 07/03 Eikenella States has had Tetanus within 5 years. Leukocytosis - now s/p Decadron HTN ? h/o Staph Plan Plan of Care vanc and zosyn Cont wound care F/u labs and cults Patient seen and examined. Chart reviewed in detail. Case discussed with MAGAZINE EDITOR. Agree with above plan in addition to 2D echo + ESR+ Rheum Factor Blood C/S despite abx x 6d CECILIA DESIR APRN July 04, 2016 11:16 THIAGO SAWYER MD July 04, 2016 14:47
[2016-07-04 15:00] VITALS: BP 158/96
--- NOTE | 2016-07-04 15:39 | PDOC ---
PROGRESS NOTES Chief Complaint Chief Complaint Left arm abscess ASSESSMENT AND PLAN: 1. Left forearm abscess: s/p I&D. culture pos for Eikenella corrodens. on IV Abx as per ID 2. Leukocytosis: reactive 2/2 infect, resolved 3. HTN: not on any meds, currently fairly well controlled 4. PTSD: on disability 5. Homelessness History of Present Illness History of Present Illness fels ok. pain controlled. wondering when he is getting out of hospital Vitals Vitals Vital Signs Date Time Temp Pulse Resp B/P (MAP) Pulse Ox O2 Delivery O2 Flow Rate FiO2 07/04/16 14:17 Room Air 07/04/16 11:00 97.9 83 16 138/83 (101) 97 97.9 07/04/16 10:33 2.0 Physical Exam General: Alert, Oriented X3, No acute distress Heart: Regular rate Lungs: Clear Abdomen: Normal bowel sounds, Soft Extremities: No clubbing, No edema, Other (wound vac ) Skin: No rashes Labs LABS Laboratory Tests Test 07/04/16 04:50 Sodium Level 138 mmol/L (136-145) Potassium Level 4.5 mmol/L (3.5-5.1) Chloride Level 102 mmol/L (98-107) Carbon Dioxide Level 29 mmol/L (21-32) Anion Gap 7 (6-14) Blood Urea Nitrogen 16 mg/dL (8-26) Creatinine 0.8 mg/dL (0.7-1.3) Estimated GFR (Cockcroft-Gault) 103.2 Glucose Level 114 mg/dL (70-99) Calcium Level 9.2 mg/dL (8.5-10.1) Comment Review of Relevant Labs Medications Vitals/I & O CRISTAL OSUNA MD July 04, 2016 15:39
[2016-07-04 19:00] VITALS: BP 158/98
[2016-07-04 23:00] VITALS: BP 132/83
[2016-07-05] MEDS: PIPERACILLIN/TAZOBACTAM 3.375 GM in IV NORMAL SALINE 50ML 50 ML IV SCH ×5 (00:06→23:12)
[2016-07-05] MEDS: HYDROmorphone 2 MG/ML VIAL IVP PRN ×4 (01:12→20:53)
[2016-07-05 03:00] VITALS: BP 132/83
[2016-07-05] MEDS: MORPHINE SULFATE 2 MG/ML DISP.SYRIN. IV PRN ×4 (06:00→23:12)
[2016-07-05] MEDS: VANCOMYCIN 1.25 GM in IV NORMAL SALINE 250ML 250 ML IV SCH ×3 (06:00→21:23)
[2016-07-05] MEDS: ALPRAZolam 1 MG TABLET PO PRN ×2 (06:09→19:37)
[2016-07-05 07:20] VITALS: BP 121/79
[2016-07-05 08:44] LABS: CALCIUM 9.3 mg/dL (8.5-10.1); CREATININE 0.9 mg/dL (0.7-1.3); GFR 90.1; POTASSIUM 4.1 mmol/L (3.5-5.1)
--- NOTE | 2016-07-05 09:13 | PDOC ---
Infectious Disease Note Subjective Subjective Doing alright ROS ROS GEN: Denies fevers, chills, sweats CV: Denies chest pain RESP: Denies shortness of air, cough GI: Denies n/v/d Vital Sign Vital Signs Vital Signs Date Time Temp Pulse Resp B/P (MAP) Pulse Ox O2 Delivery O2 Flow Rate FiO2 07/05/16 07:45 Room Air 07/05/16 07:20 96.6 75 20 121/79 (93) 95 96.6 07/04/16 10:33 2.0 Physical Exam PHYSICAL EXAM GENERAL: Resting HEENT: OC/OP pink LUNGS: Clear HEART: S1S2 ABD: Soft, NT EXT: LUE wound vac in place. No area redness or induration BIRD SITTER: Alert, oriented x 3, no focal neurologic deficit SKIN: No rash IV: ok Labs Lab Laboratory Tests Test 07/04/16 16:20 07/05/16 07:45 Erythrocyte Sedimentation Rate 42 (0-15) Sodium Level 141 mmol/L (136-145) Potassium Level 4.1 mmol/L (3.5-5.1) Chloride Level 104 mmol/L (98-107) Carbon Dioxide Level 28 mmol/L (21-32) Anion Gap 9 (6-14) Blood Urea Nitrogen 9 mg/dL (8-26) Creatinine 0.9 mg/dL (0.7-1.3) Estimated GFR (Cockcroft-Gault) 90.1 Glucose Level 84 mg/dL (70-99) Calcium Level 9.3 mg/dL (8.5-10.1) Micro AEROBIC CULT Final Final report AEROBIC RES 1 Final Eikenella corrodens Heavy growth AEROBIC RES 2 Final Diphtheroids Objective Assessment Right arm abscess s/p I and D 06/30; repeat I &D, excisional debridement skin, subcutaneous tissue, muscle and fascia. 07/03 Eikenella States has had Tetanus within 5 years. Leukocytosis - now s/p Decadron HTN ? h/o Staph Plan Plan of Care vanc and Zosyn Await 2D echo Repeat BC pending ESR 42 Rheum Factor pending Patient seen and examined. Chart reviewed. Case discussed with SCALPING MACHINE OPERATOR. Agree with above plan Rheu Factor <10. With (-) Blood C/S- TTE should be adequate CECILIA DESIR ABSTRACTOR July 05, 2016 09:13 THIAGO SAWYER MD July 05, 2016 16:06
[2016-07-05] MEDS: VANCOMYCIN PER PHARMACY MC PRN ×2 (09:34→13:18)
[2016-07-05] MEDS: ALPRAZolam 1 MG TABLET PO SCH ×3 (10:14→21:22)
[2016-07-05 10:30] VITALS: BP 152/87
--- NOTE | 2016-07-05 13:35 | PDOC ---
PROGRESS NOTES Chief Complaint Chief Complaint Left arm abscess Leukocytosis Hypertension PTSD Homelessness History of Present Illness History of Present Illness Patient lying in bed in no acute distress Discussed care with nurse Spoke with nurse about pain management, changing to oral meds Vitals Vitals Vital Signs Date Time Temp Pulse Resp B/P (MAP) Pulse Ox O2 Delivery O2 Flow Rate FiO2 07/05/16 13:27 Room Air 07/05/16 10:30 96.6 83 20 152/87 (108) 95 96.6 07/04/16 10:33 2.0 Physical Exam General: Alert, Oriented X3, No acute distress Heart: Regular rate, Normal S1, Normal S2 Lungs: Clear, Other (no wheezing) Abdomen: Normal bowel sounds, Soft Extremities: No clubbing, No edema, Other (wound vac ) Skin: No rashes Labs LABS Laboratory Tests Test 07/04/16 16:20 07/05/16 07:45 Erythrocyte Sedimentation Rate 42 (0-15) Sodium Level 141 mmol/L (136-145) Potassium Level 4.1 mmol/L (3.5-5.1) Chloride Level 104 mmol/L (98-107) Carbon Dioxide Level 28 mmol/L (21-32) Anion Gap 9 (6-14) Blood Urea Nitrogen 9 mg/dL (8-26) Creatinine 0.9 mg/dL (0.7-1.3) Estimated GFR (Cockcroft-Gault) 90.1 Glucose Level 84 mg/dL (70-99) Calcium Level 9.3 mg/dL (8.5-10.1) Review of Systems Review of Systems General: denies weakness GI: denies N/V/D/C Assessment and Plan Assessmemt and Plan Assessment: Left arm abscess Leukocytosis Hypertension PTSD Homelessness Plan: -Continue antibiotics per ID -ID consulted- awaiting 2d echo -Repeat blood cultures pending -RF pending, ESR 42 -Dr. Harrington- considering return to OR on Wednesday or wound vac change on floor -D/C Dilaudid and Morphine -Switch to Percocet 5/325 PO q4h PRN -Subspecialist input appreciated Problems: Comment Review of Relevant I have reviewed the following items mell (where applicable) has been applied. Labs Laboratory Tests Test 07/04/16 04:50 07/04/16 16:20 07/05/16 07:45 Sodium Level 138 mmol/L (136-145) 141 mmol/L (136-145) Potassium Level 4.5 mmol/L (3.5-5.1) 4.1 mmol/L (3.5-5.1) Chloride Level 102 mmol/L (98-107) 104 mmol/L (98-107) Carbon Dioxide Level 29 mmol/L (21-32) 28 mmol/L (21-32) Anion Gap 7 (6-14) 9 (6-14) Blood Urea Nitrogen 16 mg/dL (8-26) 9 mg/dL (8-26) Creatinine 0.8 mg/dL (0.7-1.3) 0.9 mg/dL (0.7-1.3) Estimated GFR (Cockcroft-Gault) 103.2 90.1 Glucose Level 114 mg/dL (70-99) 84 mg/dL (70-99) Calcium Level 9.2 mg/dL (8.5-10.1) 9.3 mg/dL (8.5-10.1) Erythrocyte Sedimentation Rate 42 (0-15) Laboratory Tests Test 07/04/16 16:20 07/05/16 07:45 Erythrocyte Sedimentation Rate 42 (0-15) Sodium Level 141 mmol/L (136-145) Potassium Level 4.1 mmol/L (3.5-5.1) Chloride Level 104 mmol/L (98-107) Carbon Dioxide Level 28 mmol/L (21-32) Anion Gap 9 (6-14) Blood Urea Nitrogen 9 mg/dL (8-26) Creatinine 0.9 mg/dL (0.7-1.3) Estimated GFR (Cockcroft-Gault) 90.1 Glucose Level 84 mg/dL (70-99) Calcium Level 9.3 mg/dL (8.5-10.1) Microbiology 06/30/16 AFB Specimen Processing Tissue - Final, Resulted 06/30/16 Acid Fast Bacilli Culture, Resulted Pending 06/30/16 Gram Stain - Final, Resulted 06/30/16 Fungal Culture, Resulted Pending 06/30/16 Fungal Culture Result 1, Resulted Pending Medications Current Medications Morphine Sulfate 2 mg PRN Q2HR PRN IV MILD TO MODERATE PAIN Last administered on 07/05/16t 10:14; Start 06/30/16 at 13:30 Sodium Chloride 1,000 ml @ 75 mls/hr [id number] IV Last administered on 18:50; Start 06/30/16 at 13:30; Stop 07/03/16 at 15:12; Status DC Piperacillin Sod/ Tazobactam Sod 3.375 gm/Sodium Chloride 50 ml @ 100 mls/hr Q6HRS IV Last administered on 07/05/16 12:32; Start 06/30/16 at 18:00 Vancomycin HCl (Vanco Per Pharmacy) 1 each PRN DAILY PRN MC SEE COMMENTS Last administered on 07/05/16 13:18; Start 06/30/16 at 21:00 Vancomycin HCl 2 gm/Sodium Chloride 500 ml @ 250 mls/hr 1X ONCE IV Last administered on 06/30/16 16:27; Start 06/30/16 at 16:30; Stop 06/30/16 at 18:29; Status DC Vancomycin HCl 1.25 gm/Sodium Chloride 250 ml @ 167 mls/hr Q12H IV Last administered on 07/01/16 17:06; Start 07/01/16 at 04:30; Stop 07/02/16 at 05:02 ; Status DC Vancomycin HCl 1 each 1X ONCE MC ; Start 07/02/16 at 04:00; Stop 07/02/16 at 04 :01; Status DC Ondansetron HCl (Zofran) 4 mg PRN Q6HRS PRN IV NAUSEA/VOMITING; Start 06/30/16 at 17:30; Stop 07/01/16 at 17:29; Status DC Fentanyl Citrate (Fentanyl 2ml Vial) 25 mcg PRN Q5MIN PRN IV MILD PAIN; Start 06/30/16 at 17:30; Stop 07/01/16 at 17:29; Status DC Fentanyl Citrate (Fentanyl 2ml Vial) 50 mcg PRN Q5MIN PRN IV MODERATE PAIN Last administered on 06/30/16 20:19; Start 06/30/16 at 17:30; Stop 07/01/16 at 17 :29; Status DC Morphine Sulfate 1 mg PRN Q10MIN PRN IV SEVERE PAIN Last administered on 20:14; Start 06/30/16 at 17:30; Stop 07/01/16 at 17:29; Status DC Ringer's Solution 1,000 ml @ 0 mls/hr Q0M IV ; Start 06/30/16 at 17:25; Stop 12/08 at 05:24; Status DC Lidocaine HCl 2 ml PRN 1X PRN ID PRIOR TO IV START; Start 06/30/16 at 17:30; Stop 07/01/16 at 17:29; Status DC Hydromorphone HCl (Dilaudid) 0.5 mg PRN Q10MIN PRN IV SEV PAIN, Second choice Last administered on 07/01/16t 17:06; Start 06/30/16 at 17:30; Stop 07/01/16 at 17:29; Status DC Prochlorperazine Edisylate (Compazine) 5 mg PACU PRN PRN IV NAUSEA, MRX1; Start 06/30/16 at 17:30; Stop 07/01/16 at 17:29; Status DC Lidocaine HCl (Lidocaine HCl 2% Abboject) 100 mg STK-MED ONCE .ROUTE ; Start 06/30/16 at 18:00; Stop 06/30/16 at 18:01; Status DC Ondansetron HCl (Zofran) 4 mg STK-MED ONCE .ROUTE ; Start 06/30/16 at 18:01; Stop 06/30/16 at 18:02; Status DC Dexamethasone Sodium Phosphate (Decadron) 20 mg STK-MED ONCE .ROUTE ; Start 06/30 at 18:01; Stop 06/30/16 at 18:02; Status DC Propofol 20 ml @ As Directed STK-MED ONCE IV ; Start 06/30/16 at 18:01; Stop 06/30 at 18:02; Status DC Fentanyl Citrate (Fentanyl 2ml Vial) 100 mcg STK-MED ONCE .ROUTE ; Start at 18:02; Stop 06/30/16 at 18:03; Status DC Fentanyl Citrate (Fentanyl 2ml Vial) 100 mcg STK-MED ONCE .ROUTE ; Start at 18:38; Stop 06/30/16 at 18:39; Status DC Sevoflurane (Ultane) 60 ml STK-MED ONCE IH ; Start 06/30/16 at 19:20; Stop at 19:21; Status DC Hydromorphone HCl (Dilaudid) 0.4 mg PRN Q4HRS PRN IVP MODERATE TO SEVERE PAIN Last administered on 07/05/16 12:32; Start 06/30/16 at 19:45 Vancomycin HCl 1.25 gm/Sodium Chloride 250 ml @ 167 mls/hr Q8HRS IV Last administered on 07/05/16 06:00; Start 07/02/16 at 06:00 Vancomycin HCl 1 each 1X ONCE MC Last administered on 07/03/16 05:30; Start 07/03/16 at 05:30; Stop 07/03/16 at 05:31; Status DC Alprazolam (Xanax) 2 mg TID PO ; Start 07/02/16 at 11:00; Stop 07/02/16 at 11:00 ; Status DC Alprazolam (Xanax) 1 mg TID PO Last administered on 07/05/16 10:14; Start 01/08 at 11:00 Alprazolam (Xanax) 1 mg PRN Q8HRS PRN PO ANXIETY / AGITATION Last administered on 07/05/16 06:09; Start 07/02/16 at 10:45 Ondansetron HCl (Zofran) 4 mg PRN Q6HRS PRN IV NAUSEA/VOMITING; Start 07/03/16 at 07:00; Stop 07/03/16 at 15:08; Status DC Fentanyl Citrate (Fentanyl 2ml Vial) 25 mcg PRN Q5MIN PRN IV MILD PAIN; Start 07/03/16 at 07:00; Stop 07/03/16 at 15:08; Status DC Fentanyl Citrate (Fentanyl 2ml Vial) 50 mcg PRN Q5MIN PRN IV MODERATE PAIN Last administered on 07/03/16 14:14; Start 07/03/16 at 07:00; Stop 07/03/16 at 15:08; Status DC Morphine Sulfate 1 mg PRN Q10MIN PRN IV SEVERE PAIN; Start 07/03/16 at 07:00; Stop 07/03/16 at 15:08; Status DC Ringer's Solution 1,000 ml @ 30 mls/hr Q24H IV ; Start 07/03/16 at 07:00; Stop 07/03/16 at 15:08; Status DC Lidocaine HCl 2 ml PRN 1X PRN ID PRIOR TO IV START; Start 07/03/16 at 07:00; Stop 07/03/16 at 15:09; Status DC Hydromorphone HCl (Dilaudid) 0.5 mg PRN Q10MIN PRN IV SEV PAIN, Second choice; Start 07/03/16 at 07:00; Stop 07/03/16 at 15:09; Status DC Prochlorperazine Edisylate (Compazine) 5 mg PACU PRN PRN IV NAUSEA, MRX1 Last administered on 07/03/16t 13:59; Start 07/03/16 at 07:00; Stop 07/03/16 at 15:09 ; Status DC Ondansetron HCl (Zofran) 4 mg PRN Q6HRS PRN IV NAUSEA/VOMITING; Start 07/06/16 at 07:00; Stop 07/06/16 at 07:00; Status DC Fentanyl Citrate (Fentanyl 2ml Vial) 25 mcg PRN Q5MIN PRN IV MILD PAIN; Start 07/06/16 at 07:00; Stop 07/06/16 at 07:00; Status DC Fentanyl Citrate (Fentanyl 2ml Vial) 50 mcg PRN Q5MIN PRN IV MODERATE PAIN; Start 07/06/16 at 07:00; Stop 07/06/16 at 07:00; Status DC Morphine Sulfate 1 mg PRN Q10MIN PRN IV SEVERE PAIN; Start 07/06/16 at 07:00; Stop 07/06/16 at 07:00; Status DC Ringer's Solution 1,000 ml @ 0 mls/hr Q0M IV ; Start 07/06/16 at 07:00; Stop at 07:00; Status DC Lidocaine HCl 2 ml PRN 1X PRN ID PRIOR TO IV START; Start 07/06/16 at 07:00; Stop 07/06/16 at 07:00; Status DC Hydromorphone HCl (Dilaudid) 0.5 mg PRN Q10MIN PRN IV SEV PAIN, Second choice; Start 07/06/16 at 07:00; Stop 07/06/16 at 07:00; Status DC Prochlorperazine Edisylate (Compazine) 5 mg PACU PRN PRN IV NAUSEA, MRX1; Start 07/06/16 at 07:00; Stop 07/06/16 at 07:00; Status DC Sevoflurane (Ultane) 15 ml STK-MED ONCE IH ; Start 07/03/16 at 13:41; Stop 07/03 at 13:42; Status DC Active Scripts Active Reported Xanax (Alprazolam) 2 Mg Tablet 1 Tab PO TID Lisinopril 10 Mg Tablet 1 Tab PO DAILY Vitals/I & O Vital Sign - Last 24 Hours 07/04/16 07/04/16 07/04/16 07/04/16 14:17 15:00 16:37 18:41 Temp 98.2 98.2 Pulse 88 Resp 16 B/P (MAP) 158/96 (116) Pulse Ox 98 O2 Delivery Room Air Room Air Room Air Room Air 07/04/16 07/04/16 07/04/16 07/04/16 19:00 20:00 21:09 21:39 Temp 98.0 98.0 Pulse 88 Resp 20 18 B/P (MAP) 158/98 (118) Pulse Ox 96 96 96 O2 Delivery Room Air Room Air Room Air 07/04/16 07/04/16 07/05/16 07/05/16 22:22 23:00 01:12 03:00 Temp 98.1 98.1 98.1 98.1 Pulse 75 75 Resp 20 20 20 20 B/P (MAP) 132/83 (99) 132/83 (99) Pulse Ox 96 97 97 97 O2 Delivery Room Air Room Air Room Air Room Air 07/05/16 07/05/16 07/05/16 07/05/16 06:00 07:20 07:24 07:45 Temp 96.6 96.6 Pulse 75 Resp 20 20 B/P (MAP) 121/79 (93) Pulse Ox 97 95 O2 Delivery Room Air Room Air Room Air Room Air 07/05/16 07/05/16 07/05/16 07/05/16 10:14 10:30 12:32 12:37 Temp 96.6 96.6 Pulse 83 Resp 20 B/P (MAP) 152/87 (108) Pulse Ox 95 O2 Delivery Room Air Room Air Room Air Room Air 07/05/16 13:27 O2 Delivery Room Air Intake and Output 07/04/16 07/04/16 07/05/16 15:00 23:00 07:00 Intake Total 480 ml 1480 ml Output Total 450 ml 1000 ml 1250 ml Balance 30 ml -1000 ml 230 ml TIMOTHY ECHOLS III DO July 05, 2016 13:35
[2016-07-05 14:30] VITALS: BP 145/93
[2016-07-05] MEDS: oxyCODONE/APAP 5/325 1 TAB TABLET PO PRN ×3 (14:36→23:54)
[2016-07-05 19:00] VITALS: BP 116/71
--- NOTE | 2016-07-05 20:04 | PDOC ---
PROGRESS NOTES Subjective Subjective Problems overnight: no acute issues. pain improved. cultures have grown eikinella and diptheroids. he is on antibiotics. wbc has not been checked recently, but ESR is 42. no fevers. Objective Vital Signs Vital Signs Date Time Temp Pulse Resp B/P (MAP) Pulse Ox O2 Delivery O2 Flow Rate FiO2 07/05/16 19:42 Room Air 07/05/16 19:34 20 07/05/16 19:00 98.1 77 116/71 (86) 100 98.1 07/04/16 10:33 2.0 Physical Exam LUE: less erythema and swelling in his lue. wv to suction. nvi distally. Labs Laboratory Tests Test 07/04/16 04:50 07/04/16 16:20 07/05/16 07:45 Sodium Level 138 mmol/L (136-145) 141 mmol/L (136-145) Potassium Level 4.5 mmol/L (3.5-5.1) 4.1 mmol/L (3.5-5.1) Chloride Level 102 mmol/L (98-107) 104 mmol/L (98-107) Carbon Dioxide Level 29 mmol/L (21-32) 28 mmol/L (21-32) Anion Gap 7 (6-14) 9 (6-14) Blood Urea Nitrogen 16 mg/dL (8-26) 9 mg/dL (8-26) Creatinine 0.8 mg/dL (0.7-1.3) 0.9 mg/dL (0.7-1.3) Estimated GFR (Cockcroft-Gault) 103.2 90.1 Glucose Level 114 mg/dL (70-99) 84 mg/dL (70-99) Calcium Level 9.2 mg/dL (8.5-10.1) 9.3 mg/dL (8.5-10.1) Erythrocyte Sedimentation Rate 42 (0-15) Rheumatoid Factor <10.0 IU/mL (0.0-13.9) Laboratory Tests Test 07/05/16 07:45 Sodium Level 141 mmol/L (136-145) Potassium Level 4.1 mmol/L (3.5-5.1) Chloride Level 104 mmol/L (98-107) Carbon Dioxide Level 28 mmol/L (21-32) Anion Gap 9 (6-14) Blood Urea Nitrogen 9 mg/dL (8-26) Creatinine 0.9 mg/dL (0.7-1.3) Estimated GFR (Cockcroft-Gault) 90.1 Glucose Level 84 mg/dL (70-99) Calcium Level 9.3 mg/dL (8.5-10.1) Assessment Assessment POD# 2, S/P I &D left forearm, wound vac exchange. Problems: (1) Abscess of forearm, left Plan Plan of Care The patient will be taken to the OR tomorrow for another debridement, if everything looks healthy and is clean, can start doing wound vac changes on the floor to decrease the swelling in the forearm. He will likely need a skin graft versus primary closure. He is asking his estimated length of stay, and this is complicated considering his social situation. He will likely need IV antibiotics as well as coverage over his abscess location. CRISTINA SWAN MD July 05, 2016 20:04
[2016-07-05 23:00] VITALS: BP 144/98
[2016-07-06] MEDS: HYDROmorphone 2 MG/ML VIAL IVP PRN ×4 (01:17→22:00)
[2016-07-06 03:00] VITALS: BP 116/77
[2016-07-06] MEDS: MORPHINE SULFATE 2 MG/ML DISP.SYRIN. IV PRN ×3 (03:12→19:12)
[2016-07-06] MEDS: PIPERACILLIN/TAZOBACTAM 3.375 GM in IV NORMAL SALINE 50ML 50 ML IV SCH ×3 (05:46→19:24)
[2016-07-06 06:00] LABS: CALCIUM 9.5 mg/dL (8.5-10.1); CREATININE 0.9 mg/dL (0.7-1.3); GFR 90.1; POTASSIUM 4.6 mmol/L (3.5-5.1)
[2016-07-06] MEDS: VANCOMYCIN 1.25 GM in IV NORMAL SALINE 250ML 250 ML IV SCH (06:31)
[2016-07-06 07:00] VITALS: BP 124/69
[2016-07-06] MEDS ORDERED: LIDOCAINE 1% 1 ML SYRINGE. ID PRN ×2 (07:00→08:30)
[2016-07-06] MEDS ORDERED: PROCHLORPERAZINE 10 MG/2 ML VIAL. IV PRN ×2 (07:00→08:30)
[2016-07-06] MEDS ORDERED: IV RINGERS,LACTATED 1000ML 1,000 ML IV SCH ×2 (07:00→08:16)
[2016-07-06] MEDS ORDERED: MORPHINE SULFATE 2 MG/ML DISP.SYRIN. IV PRN ×2 (07:00→08:30)
[2016-07-06] MEDS ORDERED: HYDROmorphone 2 MG/ML VIAL IV PRN ×2 (07:00→08:30)
[2016-07-06] MEDS ORDERED: ONDANSETRON PF 4 MG/2 ML VIAL. IV PRN ×2 (07:00→08:30)
[2016-07-06] MEDS ORDERED: fentaNYL PF VIAL 100 MCG/2 ML VIAL IV PRN ×3 (07:00→08:30)
[2016-07-06] MEDS ORDERED: ONDANSETRON PF 4 MG/2 ML VIAL. ONE (07:19)
[2016-07-06] MEDS ORDERED: LIDOCAINE 2% PF Vial for OR 5 ML VIAL. ONE (07:19)
[2016-07-06] MEDS ORDERED: DEXAMETHASONE SOD PHOS 20 MG/5 ML VIAL. ONE (07:19)
[2016-07-06] MEDS ORDERED: MIDAZOLAM HCL/PF 2 MG/2 ML VIAL. ONE (07:19)
[2016-07-06] MEDS ORDERED: fentaNYL PF VIAL 100 MCG/2 ML VIAL ONE (07:19)
[2016-07-06] MEDS ORDERED: PROPOFOL 20 ML IV ONE (07:19)
[2016-07-06] MEDS ORDERED: ePHEDrine PF IN SALINE 50 MG/5 ML DISP.SYRIN IV ONE (07:38)
[2016-07-06] MEDS ORDERED: SEVOFLURANE 16 TO 30 MINUTES. IH ONE (07:57)
--- NOTE | 2016-07-06 08:11 | PDOC4 ---
Operative Note Operative Note Operative Report Date of Operation: 07/06/2016 Preoperative Diagnosis: left forearm abscess Postoperative Diagnosis: left forearm abscess, Abscess dimensions: 15 x 8 cm Operation Performed: 1. Debridement of muscle and / or fascia, including epidermis, dermis, and subcutaneous tissue, first; 20 square cms or less, CPT 10349 2. Negative pressure wound therapy; total wound(s) surface area greater than 50 square centimeters, CPT 88125 Surgeon: Cristina Swan MD Assistant Farm Operations Manager: none Anesthesia: General Estimated Blood Loss: 10 cc Surgical Indication: The patient is a 50 year old right-hand dominant male with a left forearm abscess. He presented to the ER toxic appearing with a large fluctuant mass in his forearm. After discussing the risks and benefits of treatment the decision was made to take him to the OR to debride his abscess. He has had a wound vac in place and undergone serial debridements for the past few days. He is on antibiotics. His cultures are growing eikinella and diptheroids. Description of Procedure: The patient was identified, marked, and the procedure was reconfirmed by myself prior to taking them to the operating room. IV antibiotics were running from the floor already. A timeout was performed. The patient was positioned appropriately and underwent adequate general anesthesia. A nonsterile tourniquet was applied to the operative extremity. The extremity was prepped and draped in a standard surgical fashion. The wound vac sponge had been removed previously on the floor and there was sterile kerlix placed in the wound bed.The arm was prepped with betadine. The entire wound bed was measured as 15 cm long by 8 cm wide. There was mainly good granulation tissue on the muscle bed. The muscles were cleaned with currettes until bleeding viable tissue had been removed. The fascia and muscles of the brachioradialis and ECRL were pink, bleeding, and contractile. The area was irrigated with 3 liters of sterile saline before placing a wound vac sponge over the area to seal it. The wound vac was placed on intermittent suction and the seal was good. Disposition: The patient was transferred to the bed and taken to the recovery room awake, alert, and in stable condition. Complications: None Post-operative Plan: ID consult, IV antibiotics. The patient will likely need a skin graft over the area because it is too large for primary closure. will begin to do wound vac changes on the floor until he is ready for a skin graft. may need a transfer for definitive care. CRISTINA SWAN MD July 06, 2016 08:11
[2016-07-06] MEDS: fentaNYL PF VIAL 100 MCG/2 ML VIAL IV PRN ×2 (08:32→08:39)
[2016-07-06] MEDS: ALPRAZolam 1 MG TABLET PO SCH ×3 (09:00→19:19)
--- NOTE | 2016-07-06 09:10 | PDOC ---
Infectious Disease Note Vital Sign Vital Signs Vital Signs Date Time Temp Pulse Resp B/P (MAP) Pulse Ox O2 Delivery O2 Flow Rate FiO2 07/06/16 08:53 97.4 90 16 112/65 92 Room Air 97.4 07/06/16 08:32 10.0 Labs Lab Laboratory Tests Test 07/06/16 05:20 Sodium Level 139 mmol/L (136-145) Potassium Level 4.6 mmol/L (3.5-5.1) Chloride Level 102 mmol/L (98-107) Carbon Dioxide Level 31 mmol/L (21-32) Anion Gap 6 (6-14) Blood Urea Nitrogen 9 mg/dL (8-26) Creatinine 0.9 mg/dL (0.7-1.3) Estimated GFR (Cockcroft-Gault) 90.1 Glucose Level 88 mg/dL (70-99) Calcium Level 9.5 mg/dL (8.5-10.1) Objective Assessment Right arm abscess s/p I and D 06/30. States has had Tetanus within 5 years. Cults pending Leukocytosis - now s/p Decadron HTN ? h/o Staph Plan Plan of Care DID NOT SEE IN SURGERY D/C vanc Cont Zosyn Await 2D echo Repeat BC pending ESR 42 CHARLA MASSEY MD July 06, 2016 09:10
[2016-07-06 11:00] VITALS: BP 111/57
--- NOTE | 2016-07-06 14:13 | PDOC ---
PROGRESS NOTES Chief Complaint Chief Complaint Left arm abscess Leukocytosis Hypertension PTSD Homelessness History of Present Illness History of Present Illness sitting up in bed in no acute distress Discussed care with nurse pain 7.07/01 wound vac looks much better than last week Vitals Vitals Vital Signs Date Time Temp Pulse Resp B/P (MAP) Pulse Ox O2 Delivery O2 Flow Rate FiO2 07/06/16 12:53 18 92 Room Air 10.0 07/06/16 11:00 97.1 88 111/57 (75) 97.1 Physical Exam General: Alert, Oriented X3, No acute distress Heart: Regular rate, Normal S1, Normal S2 Lungs: Clear, Other (no wheezing) Abdomen: Normal bowel sounds, Soft Extremities: No clubbing, No edema, Other (wound vac ) Skin: No rashes Labs LABS Laboratory Tests Test 07/06/16 05:20 Sodium Level 139 mmol/L (136-145) Potassium Level 4.6 mmol/L (3.5-5.1) Chloride Level 102 mmol/L (98-107) Carbon Dioxide Level 31 mmol/L (21-32) Anion Gap 6 (6-14) Blood Urea Nitrogen 9 mg/dL (8-26) Creatinine 0.9 mg/dL (0.7-1.3) Estimated GFR (Cockcroft-Gault) 90.1 Glucose Level 88 mg/dL (70-99) Calcium Level 9.5 mg/dL (8.5-10.1) Review of Systems Review of Systems no n.v.d Assessment and Plan Assessmemt and Plan cont current Problems: Comment Review of Relevant I have reviewed the following items mell (where applicable) has been applied. Labs Laboratory Tests Test 07/04/16 16:20 07/05/16 07:45 07/06/16 05:20 Erythrocyte Sedimentation Rate 42 (0-15) Rheumatoid Factor <10.0 IU/mL (0.0-13.9) Sodium Level 141 mmol/L (136-145) 139 mmol/L (136-145) Potassium Level 4.1 mmol/L (3.5-5.1) 4.6 mmol/L (3.5-5.1) Chloride Level 104 mmol/L (98-107) 102 mmol/L (98-107) Carbon Dioxide Level 28 mmol/L (21-32) 31 mmol/L (21-32) Anion Gap 9 (6-14) 6 (6-14) Blood Urea Nitrogen 9 mg/dL (8-26) 9 mg/dL (8-26) Creatinine 0.9 mg/dL (0.7-1.3) 0.9 mg/dL (0.7-1.3) Estimated GFR (Cockcroft-Gault) 90.1 90.1 Glucose Level 84 mg/dL (70-99) 88 mg/dL (70-99) Calcium Level 9.3 mg/dL (8.5-10.1) 9.5 mg/dL (8.5-10.1) Laboratory Tests Test 07/06/16 05:20 Sodium Level 139 mmol/L (136-145) Potassium Level 4.6 mmol/L (3.5-5.1) Chloride Level 102 mmol/L (98-107) Carbon Dioxide Level 31 mmol/L (21-32) Anion Gap 6 (6-14) Blood Urea Nitrogen 9 mg/dL (8-26) Creatinine 0.9 mg/dL (0.7-1.3) Estimated GFR (Cockcroft-Gault) 90.1 Glucose Level 88 mg/dL (70-99) Calcium Level 9.5 mg/dL (8.5-10.1) Microbiology 07/04/16 Blood Culture - Preliminary, Resulted NO GROWTH AFTER 1 DAY 07/06/16 Gram Stain - Final, Complete Medications Current Medications Morphine Sulfate 2 mg PRN Q2HR PRN IV MILD TO MODERATE PAIN Last administered on 07/06/16 06:10; Start 06/30/16 at 13:30 Sodium Chloride 1,000 ml @ 75 mls/hr [id number] IV Last administered on 18:50; Start 06/30/16 at 13:30; Stop 07/03/16 at 15:12; Status DC Piperacillin Sod/ Tazobactam Sod 3.375 gm/Sodium Chloride 50 ml @ 100 mls/hr Q6HRS IV Last administered on 07/06/16 05:46; Start 06/30/16 at 18:00 Vancomycin HCl (Vanco Per Pharmacy) 1 each PRN DAILY PRN MC SEE COMMENTS Last administered on 07/05/16 13:18; Start 06/30/16 at 21:00; Stop 07/06/16 at 09:10 ; Status DC Vancomycin HCl 2 gm/Sodium Chloride 500 ml @ 250 mls/hr 1X ONCE IV Last administered on 06/30/16 16:27; Start 06/30/16 at 16:30; Stop 06/30/16 at 18:29; Status DC Vancomycin HCl 1.25 gm/Sodium Chloride 250 ml @ 167 mls/hr Q12H IV Last administered on 07/01/16 17:06; Start 07/01/16 at 04:30; Stop 07/02/16 at 05:02 ; Status DC Vancomycin HCl 1 each 1X ONCE MC ; Start 07/02/16 at 04:00; Stop 07/02/16 at 04 :01; Status DC Ondansetron HCl (Zofran) 4 mg PRN Q6HRS PRN IV NAUSEA/VOMITING; Start 06/30/16 at 17:30; Stop 07/01/16 at 17:29; Status DC Fentanyl Citrate (Fentanyl 2ml Vial) 25 mcg PRN Q5MIN PRN IV MILD PAIN; Start 06/30/16 at 17:30; Stop 07/01/16 at 17:29; Status DC Fentanyl Citrate (Fentanyl 2ml Vial) 50 mcg PRN Q5MIN PRN IV MODERATE PAIN Last administered on 06/30/16 20:19; Start 06/30/16 at 17:30; Stop 07/01/16 at 17 :29; Status DC Morphine Sulfate 1 mg PRN Q10MIN PRN IV SEVERE PAIN Last administered on 20:14; Start 06/30/16 at 17:30; Stop 07/01/16 at 17:29; Status DC Ringer's Solution 1,000 ml @ 0 mls/hr Q0M IV ; Start 06/30/16 at 17:25; Stop 12/08 at 05:24; Status DC Lidocaine HCl 2 ml PRN 1X PRN ID PRIOR TO IV START; Start 06/30/16 at 17:30; Stop 07/01/16 at 17:29; Status DC Hydromorphone HCl (Dilaudid) 0.5 mg PRN Q10MIN PRN IV SEV PAIN, Second choice Last administered on 07/01/16 17:06; Start 06/30/16 at 17:30; Stop 07/01/16 at 17:29; Status DC Prochlorperazine Edisylate (Compazine) 5 mg PACU PRN PRN IV NAUSEA, MRX1; Start 06/30/16 at 17:30; Stop 07/01/16 at 17:29; Status DC Lidocaine HCl (Lidocaine HCl 2% Abboject) 100 mg STK-MED ONCE .ROUTE ; Start 06/30/16 at 18:00; Stop 06/30/16 at 18:01; Status DC Ondansetron HCl (Zofran) 4 mg STK-MED ONCE .ROUTE ; Start 06/30/16 at 18:01; Stop 06/30/16 at 18:02; Status DC Dexamethasone Sodium Phosphate (Decadron) 20 mg STK-MED ONCE .ROUTE ; Start 06/30 at 18:01; Stop 06/30/16 at 18:02; Status DC Propofol 20 ml @ As Directed STK-MED ONCE IV ; Start 06/30/16 at 18:01; Stop 06/30 at 18:02; Status DC Fentanyl Citrate (Fentanyl 2ml Vial) 100 mcg STK-MED ONCE .ROUTE ; Start at 18:02; Stop 06/30/16 at 18:03; Status DC Fentanyl Citrate (Fentanyl 2ml Vial) 100 mcg STK-MED ONCE .ROUTE ; Start at 18:38; Stop 06/30/16 at 18:39; Status DC Sevoflurane (Ultane) 60 ml STK-MED ONCE IH ; Start 06/30/16 at 19:20; Stop at 19:21; Status DC Hydromorphone HCl (Dilaudid) 0.4 mg PRN Q4HRS PRN IVP MODERATE TO SEVERE PAIN Last administered on 07/06/16 12:53; Start 06/30/16 at 19:45 Vancomycin HCl 1.25 gm/Sodium Chloride 250 ml @ 167 mls/hr Q8HRS IV Last administered on 07/06/16 06:31; Start 07/02/16 at 06:00; Stop 07/06/16 at 09:10 ; Status DC Vancomycin HCl 1 each 1X ONCE MC Last administered on 07/03/16 05:30; Start 07/03/16 at 05:30; Stop 07/03/16 at 05:31; Status DC Alprazolam (Xanax) 2 mg TID PO ; Start 07/02/16 at 11:00; Stop 07/02/16 at 11:00 ; Status DC Alprazolam (Xanax) 1 mg TID PO Last administered on 07/06/16 12:52; Start 01/08 at 11:00 Alprazolam (Xanax) 1 mg PRN Q8HRS PRN PO ANXIETY / AGITATION Last administered on 07/05/16 19:37; Start 07/02/16 at 10:45 Ondansetron HCl (Zofran) 4 mg PRN Q6HRS PRN IV NAUSEA/VOMITING; Start 07/03/16 at 07:00; Stop 07/03/16 at 15:08; Status DC Fentanyl Citrate (Fentanyl 2ml Vial) 25 mcg PRN Q5MIN PRN IV MILD PAIN; Start 07/03/16 at 07:00; Stop 07/03/16 at 15:08; Status DC Fentanyl Citrate (Fentanyl 2ml Vial) 50 mcg PRN Q5MIN PRN IV MODERATE PAIN Last administered on 07/03/16 14:14; Start 07/03/16 at 07:00; Stop 07/03/16 at 15:08; Status DC Morphine Sulfate 1 mg PRN Q10MIN PRN IV SEVERE PAIN; Start 07/03/16 at 07:00; Stop 07/03/16 at 15:08; Status DC Ringer's Solution 1,000 ml @ 30 mls/hr Q24H IV ; Start 07/03/16 at 07:00; Stop 07/03/16 at 15:08; Status DC Lidocaine HCl 2 ml PRN 1X PRN ID PRIOR TO IV START; Start 07/03/16 at 07:00; Stop 07/03/16 at 15:09; Status DC Hydromorphone HCl (Dilaudid) 0.5 mg PRN Q10MIN PRN IV SEV PAIN, Second choice; Start 07/03/16 at 07:00; Stop 07/03/16 at 15:09; Status DC Prochlorperazine Edisylate (Compazine) 5 mg PACU PRN PRN IV NAUSEA, MRX1 Last administered on 07/03/16 13:59; Start 07/03/16 at 07:00; Stop 07/03/16 at 15:09 ; Status DC Ondansetron HCl (Zofran) 4 mg PRN Q6HRS PRN IV NAUSEA/VOMITING; Start 07/06/16 at 07:00; Stop 07/06/16 at 07:00; Status DC Fentanyl Citrate (Fentanyl 2ml Vial) 25 mcg PRN Q5MIN PRN IV MILD PAIN; Start 07/06/16 at 07:00; Stop 07/06/16 at 07:00; Status DC Fentanyl Citrate (Fentanyl 2ml Vial) 50 mcg PRN Q5MIN PRN IV MODERATE PAIN; Start 07/06/16 at 07:00; Stop 07/06/16 at 07:00; Status DC Morphine Sulfate 1 mg PRN Q10MIN PRN IV SEVERE PAIN; Start 07/06/16 at 07:00; Stop 07/06/16 at 07:00; Status DC Ringer's Solution 1,000 ml @ 0 mls/hr Q0M IV ; Start 07/06/16 at 07:00; Stop at 07:00; Status DC Lidocaine HCl 2 ml PRN 1X PRN ID PRIOR TO IV START; Start 07/06/16 at 07:00; Stop 07/06/16 at 07:00; Status DC Hydromorphone HCl (Dilaudid) 0.5 mg PRN Q10MIN PRN IV SEV PAIN, Second choice; Start 07/06/16 at 07:00; Stop 07/06/16 at 07:00; Status DC Prochlorperazine Edisylate (Compazine) 5 mg PACU PRN PRN IV NAUSEA, MRX1; Start 07/06/16 at 07:00; Stop 07/06/16 at 07:00; Status DC Sevoflurane (Ultane) 15 ml STK-MED ONCE IH ; Start 07/03/16 at 13:41; Stop 07/03 at 13:42; Status DC Oxycodone/ Acetaminophen (Percocet 5/325) 1 tab PRN Q4HRS PRN PO PAIN Last administered on 07/05/16t 23:54; Start 07/05/16 at 13:30 Dexamethasone Sodium Phosphate (Decadron) 20 mg STK-MED ONCE .ROUTE ; Start at 07:19; Stop 07/06/16 at 07:20; Status DC Lidocaine HCl (Lidocaine Pf 2% Vial) 5 ml STK-MED ONCE .ROUTE ; Start 07/06/16 at 07:19; Stop 07/06/16 at 07:20; Status DC Ondansetron HCl (Zofran) 4 mg STK-MED ONCE .ROUTE ; Start 07/06/16 at 07:19; Stop 07/06/16 at 07:20; Status DC Propofol 20 ml @ As Directed STK-MED ONCE IV ; Start 07/06/16 at 07:19; Stop at 07:20; Status DC Fentanyl Citrate (Fentanyl 2ml Vial) 100 mcg STK-MED ONCE .ROUTE ; Start at 07:19; Stop 07/06/16 at 07:20; Status DC Midazolam HCl (Versed) 2 mg STK-MED ONCE .ROUTE ; Start 07/06/16 at 07:19; Stop 07/06/16 at 07:20; Status DC Ephedrine Sulfate 50 mg STK-MED ONCE IV ; Start 07/06/16 at 07:38; Stop at 07:39; Status DC Sevoflurane (Ultane) 15 ml STK-MED ONCE IH ; Start 07/06/16 at 07:57; Stop 07/06 at 07:58; Status DC Ondansetron HCl (Zofran) 4 mg PRN Q6HRS PRN IV NAUSEA/VOMITING; Start 07/06/16 at 08:30; Stop 07/06/16 at 18:00 Fentanyl Citrate (Fentanyl 2ml Vial) 25 mcg PRN Q5MIN PRN IV MILD PAIN Last administered on 07/06/16t 08:39; Start 07/06/16 at 08:30; Stop 07/06/16 at 18:00 Fentanyl Citrate (Fentanyl 2ml Vial) 50 mcg PRN Q5MIN PRN IV MODERATE PAIN; Start 07/06/16 at 08:30; Stop 07/06/16 at 18:00 Morphine Sulfate 1 mg PRN Q10MIN PRN IV SEVERE PAIN; Start 07/06/16 at 08:30; Stop 07/06/16 at 18:00 Ringer's Solution 1,000 ml @ 30 mls/hr Q24H IV ; Start 07/06/16 at 08:16; Stop 07/06/16 at 20:15 Lidocaine HCl 2 ml PRN 1X PRN ID PRIOR TO IV START; Start 07/06/16 at 08:30; Stop 07/06/16 at 18:00 Hydromorphone HCl (Dilaudid) 0.5 mg PRN Q10MIN PRN IV SEV PAIN, Second choice; Start 07/06/16 at 08:30; Stop 07/06/16 at 18:00 Prochlorperazine Edisylate (Compazine) 5 mg PACU PRN PRN IV NAUSEA, MRX1; Start 07/06/16 at 08:30; Stop 07/06/16 at 18:00 Propofol (Diprivan) 200 mg STK-MED ONCE IV ; Start 07/03/16 at 11:58; Stop 07/06 at 10:16; Status DC Lidocaine HCl (Lidocaine HCl 2% Abboject) 100 mg STK-MED ONCE .ROUTE ; Start 02/07 at 11:58; Stop 07/06/16 at 10:16; Status DC Ondansetron HCl (Zofran) 4 mg STK-MED ONCE .ROUTE ; Start 07/03/16 at 11:58; Stop 07/06/16 at 10:16; Status DC Dexamethasone Sodium Phosphate (Decadron) 20 mg STK-MED ONCE .ROUTE ; Start 02/07 at 11:58; Stop 07/06/16 at 10:16; Status DC Fentanyl Citrate (Fentanyl 2ml Vial) 100 mcg STK-MED ONCE .ROUTE ; Start at 11:58; Stop 07/06/16 at 10:16; Status DC Active Scripts Active Reported Xanax (Alprazolam) 2 Mg Tablet 1 Tab PO TID Lisinopril 10 Mg Tablet 1 Tab PO DAILY Vitals/I & O Vital Sign - Last 24 Hours 07/05/16 07/05/16 07/05/16 07/05/16 14:30 14:36 18:22 19:00 Temp 97.7 98.1 97.7 98.1 Pulse 88 77 Resp 20 18 B/P (MAP) 145/93 (110) 116/71 (86) Pulse Ox 98 100 O2 Delivery Room Air Room Air Room Air Room Air 5/14/17 5/14/17 5/14/17 5/14/17 19:34 19:42 20:53 23:00 Temp 97.7 97.7 Pulse 85 Resp 20 20 16 B/P (MAP) 144/98 (113) Pulse Ox 95 O2 Delivery Room Air Room Air Room Air Room Air 07/05/16 07/05/16 07/06/16 07/06/16 23:12 23:54 01:16 01:17 Resp 20 20 20 20 O2 Delivery Room Air Room Air Room Air Room Air 07/06/16 07/06/16 07/06/16 07/06/16 03:00 03:12 05:52 06:10 Temp 97.5 97.5 Pulse 79 Resp 16 20 20 24 B/P (MAP) 116/77 (90) Pulse Ox 95 O2 Delivery Room Air Room Air Room Air Room Air 07/06/16 07/06/16 07/06/16 07/06/16 06:32 06:32 06:53 07:00 Temp 98.7 97.5 98.7 97.5 Pulse 72 100 Resp 20 20 16 18 B/P (MAP) 147/86 124/69 (87) Pulse Ox 97 95 O2 Delivery Room Air Room Air Room Air Room Air 07/06/16 07/06/16 07/06/16 07/06/16 08:08 08:08 08:23 08:32 Temp 97.5 97.5 Pulse 86 80 Resp 18 18 18 B/P (MAP) 118/65 120/95 Pulse Ox 99 94 94 O2 Delivery Mask Simple Mask Simple Mask Room Air O2 Flow Rate 10 10 10 10.0 07/06/16 07/06/16 07/06/16 07/06/16 08:38 08:39 08:53 11:00 Temp 97.4 97.1 97.4 97.1 Pulse 78 90 88 Resp 16 18 16 18 B/P (MAP) 116/56 112/65 111/57 (75) Pulse Ox 98 96 92 95 O2 Delivery Room Air Room Air Room Air Room Air 07/06/16 12:53 Resp 18 Pulse Ox 92 O2 Delivery Room Air O2 Flow Rate 10.0 Intake and Output 07/05/16 07/05/16 07/06/16 14:59 22:59 06:59 Intake Total 780 ml 1750 ml 530 ml Output Total 1600 ml 1175 ml 2225 ml Balance -820 ml 575 ml -1695 ml CARLA COLON MD July 06, 2016 14:12
[2016-07-06 15:00] VITALS: BP 134/49
[2016-07-06] MEDS: oxyCODONE/APAP 5/325 1 TAB TABLET PO PRN ×2 (16:39→22:53)
--- NOTE | 2016-07-06 17:09 | CARD ---
APPROVED REPORT EXAM: Two-dimensional and M-mode echocardiogram with Doppler and color Doppler. Other Information Quality : Good INDICATION Infection:Rule out subacute bacterial endocarditis 2D DIMENSIONS RVDd3.2 (2.9-3.5cm)Left Atrium(2D)3.9 (1.6-4.0cm) IVSd1.3 (0.7-1.1cm)Aortic Root(2D)3.9 (2.0-3.7cm) LVDd4.7 (3.9-5.9cm)LVOT Diameter2.3 (1.8-2.4cm) PWd1.5 (0.7-1.1cm)LVDs2.3 (2.5-4.0cm) FS (%) 30.0 %SV84.3 ml LVEF(%)60.0 (>50%) Aortic Valve AoV Peak Fernando.171.6cm/sAoV VTI28.2cm AO Peak GR.11.8mmHgLVOT VTI 22.26cm AO Mean GR.7mmHgAVA (VTI)3.30cm2 Mitral Valve MV E Zvufumxu20.7cm/sMV DECEL [id number] MV A Tzrxtltl464.0cm/sE/A Ratio0.7 TDI Lateral E' P. V12.94cm/sMedial E' P. V11.26cm/s E/Lateral E'6.2E/Medial E'7.2 Tricuspid Valve TR P. Fhgnhpkn409wq/sRAP UFKGWJPY8soZp TR Peak Gr.65enAdNPUH80ovZb LEFT VENTRICLE The left ventricle is normal size. There is mild concentric left ventricular hypertrophy. The left ve ntricular systolic function is normal and the ejection fraction is within normal range. The Ejection Fraction is 60-65%. There is normal LV segmental wall motion. Transmitral Doppler flow pattern is Gra de I-abnormal relaxation pattern. RIGHT VENTRICLE The right ventricle is normal size. The right ventricular systolic function is normal. ATRIA The left atrium size is normal. The right atrium size is normal. Cannot rule out small PFO on color d oppler imaging, agitated contrast saline was not performed on this study. AORTIC VALVE The aortic valve is normal in structure and function. Doppler and Color Flow revealed no significant aortic regurgitation. There is no significant aortic valvular stenosis. There is no aortic valvular v egetation. MITRAL VALVE The mitral valve is normal in structure and function. There is no mitral vegetation noted. There is n o evidence of mitral valve prolapse. There is no mitral valve stenosis. TRICUSPID VALVE The tricuspid valve is normal in structure and function. Doppler and Color Flow revealed trace tricus pid regurgitation. The PA pressure was estimated at 32 mmHg. There is no tricuspid valve prolapse or vegetation. There is no tricuspid valve stenosis. PULMONIC VALVE Doppler and Color Flow revealed no pulmonic valvular regurgitation. There is no pulmonic valvular mauro nosis. GREAT VESSELS The aortic root is normal in size. The ascending aorta is normal in size. The IVC is normal in size a nd collapses >50% with inspiration. PERICARDIAL EFFUSION There is no evidence of significant pericardial effusion. Critical Notification Critical Value: No <Conclusion> The left ventricular systolic function is normal and the ejection fraction is within normal range. Th e Ejection Fraction is 60-65%. There is normal LV segmental wall motion. Cannot rule out small PFO on color doppler imaging, agitated contrast saline was not performed on thi s study. No clear valvular vegetation noted. Consider YVETTE for further evaluation of PFO and or vegetations.
[2016-07-06 19:46] VITALS: BP 142/95
[2016-07-06 23:11] VITALS: BP 128/92
[2016-07-07] MEDS: ALPRAZolam 1 MG TABLET PO PRN (00:02)
[2016-07-07] MEDS: MORPHINE SULFATE 2 MG/ML DISP.SYRIN. IV PRN ×2 (00:02→02:20)
[2016-07-07] MEDS: PIPERACILLIN/TAZOBACTAM 3.375 GM in IV NORMAL SALINE 50ML 50 ML IV SCH (00:03)
[2016-07-07] MEDS: HYDROmorphone 2 MG/ML VIAL IVP PRN (01:08)
[2016-07-07 03:00] VITALS: BP 132/91
--- NOTE | 2016-07-07 10:26 | PDOC3 ---
Discharge Summary Visit Information Date of Admission: June 30, 2016 Date of Discharge: July 07, 2016 Admitting Diagnosis: sepsis Final Diagnosis sepsis Left arm abscess Leukocytosis Hypertension PTSD Homelessness Brief Hospital Course Allergies Allergies Coded Allergies Type Severity Reaction Last Updated Verified No Known Allergies Allergy Unknown 07/06/16 Yes Vital Signs Vital Signs Date Time Temp Pulse Resp B/P (MAP) Pulse Ox O2 Delivery O2 Flow Rate FiO2 07/07/16 03:00 97.6 101 20 132/91 (105) 95 Room Air 97.6 07/06/16 13:23 10.0 Lab Results Laboratory Tests Test 07/06/16 05:20 Sodium Level 139 mmol/L (136-145) Potassium Level 4.6 mmol/L (3.5-5.1) Chloride Level 102 mmol/L (98-107) Carbon Dioxide Level 31 mmol/L (21-32) Anion Gap 6 (6-14) Blood Urea Nitrogen 9 mg/dL (8-26) Creatinine 0.9 mg/dL (0.7-1.3) Estimated GFR (Cockcroft-Gault) 90.1 Glucose Level 88 mg/dL (70-99) Calcium Level 9.5 mg/dL (8.5-10.1) Brief Hospital Course Mr. Ennis is a 50 old gentleman who currently homeless, Hurt arm after he fell. pain, swelling and also had fevers, chills and sweats. transferred her from [facility]. broad abx surg intervention X3, drain placed, on wound vac culture grew Eikenella corrodens PTSD. pt left AMA Discharge Information Condition at Discharge: Improved Disposition/Orders: Other (AMA) Scheduled Alprazolam (Xanax), 1 TAB PO TID, (Reported) Lisinopril (Lisinopril), 1 TAB PO DAILY, (Reported) Patient Instructions Patient Instructions pt left AMA CARLA COLON MD July 07, 2016 10:26
[2016-07-28] MEDS ORDERED: ALPR0.5T6 PO (10:57)
[2016-07-28] MEDS ORDERED: AMOX1TAB61 PO (10:57)
[2016-07-28] MEDS ORDERED: QUET25TA PO (10:57)
== END 2016-07-07 03:35 | disposition left against medical advice (07) | DRG 854 ==
LOC: 5 NORTH 13:14
PROVIDERS: ADMIT Internal Medicine; ATTEND Internal Medicine
PROC: 0KBB0ZZ Excision of Left Lower Arm and Wrist Muscle, Open Approach (ICD-10-PCS; 2016-06-30)
PROC: 0KBB0ZZ Excision of Left Lower Arm and Wrist Muscle, Open Approach (ICD-10-PCS; principal; 2016-07-03 13:00)
PROC: 0KBB0ZZ Excision of Left Lower Arm and Wrist Muscle, Open Approach (ICD-10-PCS; 2016-07-06)
DX: A41.9 Sepsis, unspecified organism (principal); L02.414 Cutaneous abscess of left upper limb; L02.413 Cutaneous abscess of right upper limb; M60.9 Myositis, unspecified; E11.9 Type 2 diabetes mellitus without complications; F17.200 Nicotine dependence, unspecified, uncomplicated; F41.9 Anxiety disorder, unspecified; F43.10 Post-traumatic stress disorder, unspecified; I10 Essential (primary) hypertension; Z59.0 Homelessness
CPT/HCPCS: 36415; 80048; 80202; 85007; 85027; 85651; 86431; 87040; 87071; 87075; 87102; 87116; 87205; 93306; J0780; J1100; J1170; J2250; J2270; J2405; J2543; J2704; J3010; J3370; J7030; J7040; J7050

== ENCOUNTER 2016-08-24 23:53 | Observation (INO) | payer SELFPAY ==
[~2016-08-24] VITALS: Ht 172.7 cm; Wt 87.5 kg
[~2016-08-24 23:53] MED LIST: ALPR0.5T6 PO; ALPR2TAB2 PO; AMOX1TAB61 PO; LISI10TA2 PO; QUET25TA PO
[2016-08-25 00:19] LABS: BASO # 0.1 x10^3/uL (0.0-0.2); BASO % 1 % (0-3); EOS % 3 % (0-3); HEMATOCRIT 37.8 % (39.0-53.0); HEMOGLOBIN 12.6 g/dL (13.0-17.5); LYMPH # 3.6 x10^3/uL (1.0-4.8); LYMPH % 26 % (24-48); MEAN CORPUSCULAR HEMOGLOBIN 30 pg (25-35); MEAN CORPUSCULAR HGB CONC 33 g/dL (31-37); MEAN CORPUSCULAR VOLUME 88 fL (79-100); MONO % 11 % (0-9); NEUT % 58 % (31-73); PLATELET COUNT 295 x10^3/uL (140-400); RED BLOOD COUNT 4.27 x10^6/uL (4.30-5.70); RED CELL DISTRIBUTION WIDTH 13.6 % (11.5-14.5); WHITE BLOOD COUNT 13.7 x10^3/uL (4.0-11.0)
--- NOTE | 2016-08-25 00:19 | PHYS DOC ---
Adult General Chief Complaint Chief Complaint: DRUG ABUSE HPI HPI Patient is a 50 year old male who presents via EMS found outside wandering around threatening to harm individuals. Patient is actively psychotic and yelling at staff. He will not follow commands. He does have a past medical history of meth abuse, anxiety, bipolar, depression, hypertension and schizophrenia. Review of Systems Review of Systems Unable to obtain secondary to patient's mental status Current Medications Current Medications Current Medications Medications (Trade) Dose Ordered Sig/Bethany Start Time Stop Time Status Last Admin Dose Admin Olanzapine (ZyPREXA ZYDIS) 10 mg 1X ONCE 08/25/16 00:30 08/25/16 00:31 DC Ziprasidone (Geodon Im) 20 mg 1X ONCE 08/25/16 00:30 08/25/16 00:48 DC 08/25/16 00:31 20 MG Allergies Allergies Allergies Coded Allergies Type Severity Reaction Last Updated Verified No Known Allergies Allergy Unknown 07/24/16 Yes Physical Exam Physical Exam Constitutional: Well developed, well nourished, no acute distress, non-toxic appearance. [] HENT: Normocephalic, atraumatic, bilateral external ears normal, nose normal. [] Eyes: EOMI, conjunctiva normal, no discharge. [] Neck: Normal range of motion. [] Cardiovascular:Heart rate regular rhythm, no murmur [] Lungs & Thorax: Bilateral breath sounds clear to auscultation [] Abdomen: Bowel sounds normal, soft, no tenderness, no masses, no pulsatile masses. [] Skin: Warm, dry, no erythema, no rash. [] Back: No tenderness, no CVA tenderness. [] Extremities: No tenderness, no cyanosis, no clubbing, ROM intact, no edema. [] Neurologic: Alert and oriented X 2, normal motor function, normal sensory function, no focal deficits noted. [] Psychologic: Agitated and yelling at staff and pacing the room [] Current Patient Data Vital Signs Vital Signs Date Time Temp Pulse Resp B/P (MAP) Pulse Ox O2 Delivery O2 Flow Rate FiO2 08/25/16 00:00 97.7 101 18 149/97 (114) 99 Room Air 97.7 Lab Values Laboratory Tests Test 08/25/16 00:12 White Blood Count 13.7 x10^3/uL (4.0-11.0) H Red Blood Count 4.27 x10^6/uL (4.30-5.70) L Hemoglobin 12.6 g/dL (13.0-17.5) L Hematocrit 37.8 % (39.0-53.0) L Mean Corpuscular Volume 88 fL (79-100) Mean Corpuscular Hemoglobin 30 pg (25-35) Mean Corpuscular Hemoglobin Concent 33 g/dL (31-37) Red Cell Distribution Width 13.6 % (11.5-14.5) Platelet Count 295 x10^3/uL (140-400) Neutrophils (%) (Auto) 58 % (31-73) Lymphocytes (%) (Auto) 26 % (24-48) Monocytes (%) (Auto) 11 % (0-9) H Eosinophils (%) (Auto) 3 % (0-3) Basophils (%) (Auto) 1 % (0-3) Neutrophils # (Auto) 8.0 x10^3uL (1.8-7.7) H Lymphocytes # (Auto) 3.6 x10^3/uL (1.0-4.8) Monocytes # (Auto) 1.5 x10^3/uL (0.0-1.1) H Eosinophils # (Auto) 0.5 x10^3/uL (0.0-0.7) Basophils # (Auto) 0.1 x10^3/uL (0.0-0.2) Sodium Level 136 mmol/L (136-145) Potassium Level 3.6 mmol/L (3.5-5.1) Chloride Level 98 mmol/L (98-107) Carbon Dioxide Level 29 mmol/L (21-32) Anion Gap 9 (6-14) Blood Urea Nitrogen 28 mg/dL (8-26) H Creatinine 1.7 mg/dL (0.7-1.3) H Estimated GFR (Cockcroft-Gault) 43.2 Glucose Level 105 mg/dL (70-99) H Calcium Level 9.3 mg/dL (8.5-10.1) Magnesium Level 1.9 mg/dL (1.8-2.4) Total Bilirubin 0.6 mg/dL (0.2-1.0) Direct Bilirubin 0.1 mg/dL (0.0-0.2) Aspartate Amino Transferase (AST) 26 U/L (15-37) Alanine Aminotransferase (ALT) 26 U/L (16-63) Alkaline Phosphatase 90 U/L (46-116) Ammonia 14 mcmol/L (11-34) Total Protein 7.6 g/dL (6.4-8.2) Albumin 4.0 g/dL (3.4-5.0) Thyroid Stimulating Hormone (TSH) 0.830 uIU/mL (0.358-3.74) Salicylates Level < 2.8 mg/dL (2.8-20.0) L Salicylate Last Dose Date Unk Salicylate Last Dose Time Unk Acetaminophen Level < 2 mcg/ml (10-30) L Acetaminophen Last Dose Date Unk Acetaminophen Last Dose Time Unk Ethyl Alcohol Level < 10 mg/dL (0-10) Laboratory Tests 08/25/16 00:12 Laboratory Tests 08/25/16 00:12 EKG EKG [] Radiology/Procedures Radiology/Procedures [] Impressions: Altered Mental status Acute renal failure Course & Med Decision Making Course & Med Decision Making Pertinent Labs and Imaging studies reviewed. (See chart for details) Patient presents agitated and pacing around the room. He is moving all of his extremities and this appears to be psychiatric induced. Patient required IM Geodon in order to calm him down. He's been sleeping now. He is being admitted secondary to his altered mental status. Interim orders have been written. He does have an elevated creatinine versus baseline. 1 L normal saline was ordered in addition to maintenance fluids. His urine is still pending at this time. Dragon Disclaimer Dragon Disclaimer This electronic medical record was generated, in whole or in part, using a voice recognition dictation system. Departure Departure Impression: Primary Impression: Altered mental status Disposition: ADMITTED INPATIENT Admitting Physician: Lizzy Coyle Condition: STABLE Referrals: NATALIE SAENZ (PCP) Problem Qualifiers Primary Impression: Altered mental status Altered mental status type: unspecified Qualified Codes: R41.82 - Altered mental status, unspecified ISABEL LOMAX MD Aug 25, 2016 00:19
[2016-08-25] MEDS ORDERED: ZIPRASIDONE IM 20 MG VIAL. IM ONE (00:30)
[2016-08-25 00:34] LABS: CALCIUM 9.3 mg/dL (8.5-10.1); CREATININE 1.7 mg/dL (0.7-1.3); GFR 43.2; POTASSIUM 3.6 mmol/L (3.5-5.1)
[2016-08-25 00:39] LABS: ETHANOL < 10 mg/dL (0-10)
[2016-08-25 00:40] LABS: DIRECT BILIRUBIN 0.1 mg/dL (0.0-0.2); MAGNESIUM 1.9 mg/dL (1.8-2.4); TOTAL BILIRUBIN 0.6 mg/dL (0.2-1.0); TOTAL PROTEIN 7.6 g/dL (6.4-8.2)
--- NOTE | 2016-08-25 02:07 | ACF ---
Admission Forms Criteria MENTAL STATUS CHANGE Clinical Indications for Inpatient Care (Place 'X' for any and all applicable criteria): Ongoing inpatient care may be needed for 1 or more of the following(1)(2)(3)(5)( 6): [ ]I. Suspected serious etiology (eg, medical disorder, MINER PLACER event) of altered mental status [X]II. Danger to self or others not manageable at lower level of care [ ]III. Grave disability (eg, inability to perform self care necessary at lower level of care) [ ]IV. Agitation or inappropriate behavior interfering with care for primary condition (eg, attempting to discontinue lines or drains prematurely, unable to cooperate with respiratory care) [ ]V. Delirium [A] [D][E] as described by 1 or more of the following(26): [ ]a) Delirium due to alcohol or sedative [F] withdrawal [ ]b) Delirium of uncertain etiology that has not responded to appropriate empiric treatment [ ]c) Delirium that prevents performance of a life-sustaining function (eg, feeding or hydrating oneself) [ ]. General contraindications and/or Inappropriate clinical situations for Observational Care in patients with Mental Status Change, when ANY ONE of the following is required: [ ]a) Prediction of prolongation of LOS based on ANY ONE of the following may be considered as a contraindication for observational care 2, 3, 4, 5, 6, 7, 8, 9, 10, 11 [ ]i) Age > 65 yrs. [ ]ii) Patient arriving by ambulance [ ]iii) Patient with high acuity [ ]iv) Patient requiring vital sign monitoring [ ]v) Patient on IV medication [ ]b) Systolic blood pressures greater than or equal to 180mmHg 3, 12 [ ]c) Patient with altered mental status including delirium and other alteration of consciousness, (3) [ ]d) Patient whose discharge disposition will be to a chcf home or rehabilitation home should not be managed in Emergency Department Observation Unit. CMS rule requires 3 days hospital stay before such placement.3,13 [ ]e) Patient with failure to thrive due to broad array of etiologies 3,16,17 [ ]f) Inability to ambulate 3,14 Extended stay beyond goal length of stay for the primary condition may be needed until ALL of the following are present(3)(5): [ ]a) Underlying medical etiology of mental status change is absent, or has been established and adequately treated [ ]b) Danger to self or others is absent or manageable at lower level of care. [ ]c) Behavior crisis management, including physical or chemical restraints, is not required or available at lower level of car [ ]d) Substance or alcohol withdrawal is absent or manageable at lower level of care. [ ]e) Behavioral symptoms (eg, agitation, somnolence, inappropriate behavior) are absent, or are manageable at lower level of care. The original [facility] content created by [facility] has been revised. The portions of the content which have been revised are identified through the use of italic text or in bold, and [facility] has neither reviewed nor approved the modified material. All other unmodified content is copyright [facility]. Please see references footnoted in the original [facility] edition 2016 Admission Criteria Met?: Yes PAM OBRIEN Aug 25, 2016 02:07
[2016-08-25] MEDS ORDERED: IV NORMAL SALINE 1000ML BAG 1,000 ML IV ONE (02:15)
[2016-08-25] MEDS: IV DEXTROSE 5 %-0.45 % NACL 1,000 ML IV SCH ×2 (02:45→15:28)
[2016-08-25] MEDS ORDERED: ONDANSETRON PF 4 MG/2 ML VIAL. IV PRN ×2 (02:45→09:34)
[2016-08-25 03:58] LABS: BILIRUBIN,URINE NEGATIVE (NEG); GLUCOSE,URINE NEGATIVE (NEG); NITRITE,URINE NEGATIVE (NEG); PROTEIN,URINE NEGATIVE (NEG-TRACE); UROBILINOGEN,URINE 0.2 mg/dL (0.2 mg/dL)
[2016-08-25 04:05] LABS: BARBITURATES NEG (NEG); BENZODIAZEPINES NEG (NEG); CANNABINOIDS NEG (NEG); COCAINE NEG (NEG); METHADONE NEG (NEG); OPIATES NEG (NEG); PHENCYCLIDINE NEG (NEG)
[2016-08-25 04:10] LABS: BACTERIA,URINE 0 /HPF (0-FEW); RBC,URINE 0 /HPF (0-2); SQUAMOUS EPITHELIAL CELL,UR OCC /LPF
[2016-08-25 07:30] VITALS: BP 117/70
--- NOTE | 2016-08-25 09:19 | EKG ---
[facility] [address] [place] [address] Test Date: 2016-08-25 Test Time: 07:24:26 Pat Name: DARREN HARMON Department: Room: [facility] Gender: M Cyber Instructor: KRISTIE : [id number] Requested By: ISABEL LOMAX Order Number: [id number] Reading MD: Measurements Intervals Bourg Rate: 79 P: 64 FL: 178 QRS: 25 QRSD: 90 T: 33 QT: 380 QTc: 442 Interpretive Statements SINUS RHYTHM LEFT ATRIAL ABNORMALITY LOW LIMB LEAD VOLTAGE ABNORMAL ECG RI6.01 No previous ECG available for comparison
[2016-08-25] MEDS ORDERED: HALOPERIDOL LACTATE 5 MG/ML VIAL. IVP PRN (09:45)
[2016-08-25 11:00] VITALS: BP 119/76
[2016-08-25] MEDS: LISINOPRIL 10 MG TABLET PO SCH (11:32)
[2016-08-25] MEDS: QUEtiapine 25 MG TABLET. PO SCH (11:32)
--- NOTE | 2016-08-25 12:13 | PDOC1 ---
History and Physical Date of Admission Date of Admission DATE: 08/25/16 TIME: 12:08 Identification/Chief Complaint Chief Complaint agitation, threat to harm others and self Problems: Source Source: Caregiver, Chart review History of Present Illness History of Present Illness 50 year old male who presents via EMS found outside wandering around threatening to harm individuals. Patient is actively psychotic and yelling at staff. He will not follow commands. He does have a past medical history of meth abuse, anxiety, bipolar, depression, hypertension and schizophrenia. THis documentation was gathered from ER documentation, as pt got geodon 20 mgs IM last night and is fast asleep. NO family at bedside. Sitter at bedside As per sitter, he woke up, went to bathroom, was not interested in breakfast and went back to sleep TRay untouched CReat 1.7 WBC 13 Positive amphetamines in UDS Past Medical History Cardiovascular: HTN Psych: Anxiety, Depression Past Surgical History Past Surgical History: No pertinent history Family History Family History: No Significant, Family History Unknown Social History Smoke: No ALCOHOL: none Drugs: Cocaine (rest of smoking and etoh hx cant be obtained), Other Current Medications Current Medications Current Medications Olanzapine (ZyPREXA ZYDIS) 10 mg 1X ONCE PO ; Start 08/25/16 at 00:30; Stop 08/25 at 00:31; Status DC Ziprasidone (Geodon Im) 20 mg 1X ONCE IM Last administered on 08/25/16t 00:31; Start 08/25/16 at 00:30; Stop 08/25/16 at 00:48; Status DC Sodium Chloride 1,000 ml @ 1,000 mls/hr 1X ONCE IV ; Start 08/25/16 at 02:15; Stop 08/25/16 at 03:14; Status DC Ondansetron HCl (Zofran) 4 mg PRN Q8HRS PRN IV NAUSEA/VOMITING; Start 08/25/16 at 02:45; Stop 08/25/16 at 09:36; Status DC Dextrose/Sodium Chloride 1,000 ml @ 100 mls/hr Q10H IV ; Start 08/25/16 at 02:45 Ondansetron HCl (Zofran) 4 mg PRN Q6HRS PRN IV NAUSEA/VOMITING; Start 08/25/16 at 09:34; Stop 08/26/16 at 09:33 Haloperidol Lactate (Haldol) 5 mg PRN Q6HRS PRN IVP AGITATION; Start 08/25/16 at 09:45 Alprazolam (Xanax) 0.5 mg PRN Q8HRS PRN PO ANXIETY / AGITATION; Start 08/25/16 at 09:45 Lorazepam (Ativan) 2 mg PRN Q4HRS PRN IV ANXIETY / AGITATION; Start 08/25/16 at 09:45 Oxycodone/ Acetaminophen (Percocet 5/325) 1 tab PRN Q4HRS PRN PO PAIN; Start at 09:45 Lisinopril (Prinivil) 10 mg DAILY PO Last administered on 08/25/16 11:32; Start 08/25/16 at 11:00 Quetiapine Fumarate (SEROquel) 50 mg DAILY PO Last administered on 08/25/16 11: 32; Start 08/25/16 at 11:00 Active Scripts Active Augmentin 875-125 Tablet (Amoxicillin/Potassium Clav) 1 Each Tablet 1 Tab PO BID Alprazolam 0.5 Mg Tablet 0.5 Mg PO PRN Q8HRS PRN Quetiapine Fumarate 25 Mg Tablet 50 Mg PO DAILY Reported Xanax (Alprazolam) 2 Mg Tablet 1 Tab PO TID Lisinopril 10 Mg Tablet 1 Tab PO DAILY Allergies Allergies: Coded Allergies: No Known Allergies (Verified Allergy, Unknown, 07/24/16) ROS Review of System asleep - did not wake Physical Exam General: No acute distress HEENT: Atraumatic, PERRLA, EOMI, Mucous membr. moist/pink Lungs: Clear to auscultation Heart: S1S2, RRR, no thrills, no rubs, no gallops, no murmurs Cardiovascular: S1, S2 Abdomen: Normal bowel sounds, Soft, No tenderness, No hepatosplenomegaly, No masses Male Genitals Exam: normal genitalia, normal prostate Rectal Exam: not examined PELVIC: Nml ext genitalia Extremities: No clubbing, No cyanosis, No edema, Normal pulses, No tenderness/ swelling Skin: No rashes, No breakdown, No significant lesion Neuro: Normal gait, Normal speech, Strength at 5/5 X4 ext, Normal tone, Sensation intact, Cranial nerves 3-12 NL, Reflexes 2+ Psych/Mental Status: Mental status NL, Mood NL Vitals Vitals Vital Signs Date Time Temp Pulse Resp B/P (MAP) Pulse Ox O2 Delivery O2 Flow Rate FiO2 08/25/16 11:32 80 119/76 08/25/16 11:00 97.7 19 96 Room Air 97.7 Labs Labs Laboratory Tests Test 08/25/16 00:12 08/25/16 03:49 White Blood Count 13.7 x10^3/uL (4.0-11.0) Red Blood Count 4.27 x10^6/uL (4.30-5.70) Hemoglobin 12.6 g/dL (13.0-17.5) Hematocrit 37.8 % (39.0-53.0) Mean Corpuscular Volume 88 fL (79-100) Mean Corpuscular Hemoglobin 30 pg (25-35) Mean Corpuscular Hemoglobin Concent 33 g/dL (31-37) Red Cell Distribution Width 13.6 % (11.5-14.5) Platelet Count 295 x10^3/uL (140-400) Neutrophils (%) (Auto) 58 % (31-73) Lymphocytes (%) (Auto) 26 % (24-48) Monocytes (%) (Auto) 11 % (0-9) Eosinophils (%) (Auto) 3 % (0-3) Basophils (%) (Auto) 1 % (0-3) Neutrophils # (Auto) 8.0 x10^3uL (1.8-7.7) Lymphocytes # (Auto) 3.6 x10^3/uL (1.0-4.8) Monocytes # (Auto) 1.5 x10^3/uL (0.0-1.1) Eosinophils # (Auto) 0.5 x10^3/uL (0.0-0.7) Basophils # (Auto) 0.1 x10^3/uL (0.0-0.2) Sodium Level 136 mmol/L (136-145) Potassium Level 3.6 mmol/L (3.5-5.1) Chloride Level 98 mmol/L (98-107) Carbon Dioxide Level 29 mmol/L (21-32) Anion Gap 9 (6-14) Blood Urea Nitrogen 28 mg/dL (8-26) Creatinine 1.7 mg/dL (0.7-1.3) Estimated GFR (Cockcroft-Gault) 43.2 Glucose Level 105 mg/dL (70-99) Calcium Level 9.3 mg/dL (8.5-10.1) Magnesium Level 1.9 mg/dL (1.8-2.4) Total Bilirubin 0.6 mg/dL (0.2-1.0) Direct Bilirubin 0.1 mg/dL (0.0-0.2) Aspartate Amino Transf (AST/SGOT) 26 U/L (15-37) Alanine Aminotransferase (ALT/SGPT) 26 U/L (16-63) Alkaline Phosphatase 90 U/L (46-116) Ammonia 14 mcmol/L (11-34) Total Protein 7.6 g/dL (6.4-8.2) Albumin 4.0 g/dL (3.4-5.0) Thyroid Stimulating Hormone (TSH) 0.830 uIU/mL (0.358-3.74) Salicylates Level < 2.8 mg/dL (2.8-20.0) Salicylate Last Dose Date Unk Salicylate Last Dose Time Unk Acetaminophen Level < 2 mcg/ml (10-30) Acetaminophen Last Dose Date Unk Acetaminophen Last Dose Time Unk Ethyl Alcohol Level < 10 mg/dL (0-10) Urine Collection Type Unknown Urine Color Yellow Urine Clarity Clear Urine pH 5.0 Urine Specific [place] 1.015 Urine Protein Negative mg/dL (NEG-TRACE) Urine Glucose (UA) Negative mg/dL (NEG) Urine Ketones (Stick) Negative mg/dL (NEG) Urine Blood Negative (NEG) Urine Nitrite Negative (NEG) Urine Bilirubin Negative (NEG) Urine Urobilinogen Dipstick 0.2 mg/dL (0.2 mg/dL) Urine Leukocyte Esterase Negative (NEG) Urine RBC 0 /HPF (0-2) Urine WBC 1-4 /HPF (0-4) Urine Squamous Epithelial Cells Occ /LPF Urine Bacteria 0 /HPF (0-FEW) Urine Hyaline Casts Moderate /HPF Urine Mucus Mod /LPF Urine Opiates Screen Neg (NEG) Urine Methadone Screen Neg (NEG) Urine Barbiturates Neg (NEG) Urine Phencyclidine Screen Neg (NEG) Urine Amphetamine/Methamphetamine Pos (NEG) Urine Benzodiazepines Screen Neg (NEG) Urine Cocaine Screen Neg (NEG) Urine Cannabinoids Screen Neg (NEG) Urine Ethyl Alcohol Neg (NEG) Laboratory Tests Test 08/25/16 00:12 08/25/16 03:49 White Blood Count 13.7 x10^3/uL (4.0-11.0) Red Blood Count 4.27 x10^6/uL (4.30-5.70) Hemoglobin 12.6 g/dL (13.0-17.5) Hematocrit 37.8 % (39.0-53.0) Mean Corpuscular Volume 88 fL (79-100) Mean Corpuscular Hemoglobin 30 pg (25-35) Mean Corpuscular Hemoglobin Concent 33 g/dL (31-37) Red Cell Distribution Width 13.6 % (11.5-14.5) Platelet Count 295 x10^3/uL (140-400) Neutrophils (%) (Auto) 58 % (31-73) Lymphocytes (%) (Auto) 26 % (24-48) Monocytes (%) (Auto) 11 % (0-9) Eosinophils (%) (Auto) 3 % (0-3) Basophils (%) (Auto) 1 % (0-3) Neutrophils # (Auto) 8.0 x10^3uL (1.8-7.7) Lymphocytes # (Auto) 3.6 x10^3/uL (1.0-4.8) Monocytes # (Auto) 1.5 x10^3/uL (0.0-1.1) Eosinophils # (Auto) 0.5 x10^3/uL (0.0-0.7) Basophils # (Auto) 0.1 x10^3/uL (0.0-0.2) Sodium Level 136 mmol/L (136-145) Potassium Level 3.6 mmol/L (3.5-5.1) Chloride Level 98 mmol/L (98-107) Carbon Dioxide Level 29 mmol/L (21-32) Anion Gap 9 (6-14) Blood Urea Nitrogen 28 mg/dL (8-26) Creatinine 1.7 mg/dL (0.7-1.3) Estimated GFR (Cockcroft-Gault) 43.2 Glucose Level 105 mg/dL (70-99) Calcium Level 9.3 mg/dL (8.5-10.1) Magnesium Level 1.9 mg/dL (1.8-2.4) Total Bilirubin 0.6 mg/dL (0.2-1.0) Direct Bilirubin 0.1 mg/dL (0.0-0.2) Aspartate Amino Transf (AST/SGOT) 26 U/L (15-37) Alanine Aminotransferase (ALT/SGPT) 26 U/L (16-63) Alkaline Phosphatase 90 U/L (46-116) Ammonia 14 mcmol/L (11-34) Total Protein 7.6 g/dL (6.4-8.2) Albumin 4.0 g/dL (3.4-5.0) Thyroid Stimulating Hormone (TSH) 0.830 uIU/mL (0.358-3.74) Salicylates Level < 2.8 mg/dL (2.8-20.0) Salicylate Last Dose Date Unk Salicylate Last Dose Time Unk Acetaminophen Level < 2 mcg/ml (10-30) Acetaminophen Last Dose Date Unk Acetaminophen Last Dose Time Unk Ethyl Alcohol Level < 10 mg/dL (0-10) Urine Collection Type Unknown Urine Color Yellow Urine Clarity Clear Urine pH 5.0 Urine Specific [place] 1.015 Urine Protein Negative mg/dL (NEG-TRACE) Urine Glucose (UA) Negative mg/dL (NEG) Urine Ketones (Stick) Negative mg/dL (NEG) Urine Blood Negative (NEG) Urine Nitrite Negative (NEG) Urine Bilirubin Negative (NEG) Urine Urobilinogen Dipstick 0.2 mg/dL (0.2 mg/dL) Urine Leukocyte Esterase Negative (NEG) Urine RBC 0 /HPF (0-2) Urine WBC 1-4 /HPF (0-4) Urine Squamous Epithelial Cells Occ /LPF Urine Bacteria 0 /HPF (0-FEW) Urine Hyaline Casts Moderate /HPF Urine Mucus Mod /LPF Urine Opiates Screen Neg (NEG) Urine Methadone Screen Neg (NEG) Urine Barbiturates Neg (NEG) Urine Phencyclidine Screen Neg (NEG) Urine Amphetamine/Methamphetamine Pos (NEG) Urine Benzodiazepines Screen Neg (NEG) Urine Cocaine Screen Neg (NEG) Urine Cannabinoids Screen Neg (NEG) Urine Ethyl Alcohol Neg (NEG) VTE Prophylaxis Ordered VTE Prophylaxis Devices: Yes VTE Pharmacological Prophylaxi: Yes Assessment/Plan Assessment/Plan 1. Toxic encephalopathy 2. REcreational drug use 3. Anxiety, depression NOS 4. Hx schizophrenia and bipolar d/o by documentation PlaN: Admit IVF Recheck BMP dominga SW for PAT referral Cont 1:1 BEnzos prn Supportive care REg diet Resume antipsychotic home med Dw KELLY Boyce MD Aug 25, 2016 12:12
[2016-08-25 14:59] VITALS: BP 113/70
[2016-08-25] MEDS: ALPRAZolam 0.5 MG TABLET PO PRN (15:26)
[2016-08-25] MEDS: oxyCODONE/APAP 5/325 1 TAB TABLET PO PRN (15:27)
[2016-08-25 18:59] VITALS: BP 102/62
[2016-08-25 23:00] VITALS: BP 119/56
[2016-08-26] MEDS: IV DEXTROSE 5 %-0.45 % NACL 1,000 ML IV SCH (00:46)
[2016-08-26] MEDS: ALPRAZolam 0.5 MG TABLET PO PRN ×2 (02:16→10:45)
[2016-08-26] MEDS: oxyCODONE/APAP 5/325 1 TAB TABLET PO PRN ×2 (02:16→08:23)
[2016-08-26 05:45] LABS: CALCIUM 8.3 mg/dL (8.5-10.1); CREATININE 1.1 mg/dL (0.7-1.3); GFR 71.4; POTASSIUM 4.1 mmol/L (3.5-5.1)
[2016-08-26 05:47] LABS: BASO # 0.1 x10^3/uL (0.0-0.2); BASO % 1 % (0-3); EOS % 6 % (0-3); HEMATOCRIT 36.8 % (39.0-53.0); HEMOGLOBIN 12.4 g/dL (13.0-17.5); LYMPH % 40 % (24-48); MEAN CORPUSCULAR HEMOGLOBIN 30 pg (25-35); MEAN CORPUSCULAR HGB CONC 34 g/dL (31-37); MEAN CORPUSCULAR VOLUME 89 fL (79-100); MONO % 12 % (0-9); NEUT % 42 % (31-73); PLATELET COUNT 249 x10^3/uL (140-400); RED BLOOD COUNT 4.13 x10^6/uL (4.30-5.70); RED CELL DISTRIBUTION WIDTH 13.4 % (11.5-14.5); WHITE BLOOD COUNT 7.4 x10^3/uL (4.0-11.0)
[2016-08-26 07:00] VITALS: BP_SYST 119; BP_SYST 143; BP_DIAS 41; BP_DIAS 56
[2016-08-26] MEDS: LISINOPRIL 10 MG TABLET PO SCH (08:22)
[2016-08-26] MEDS: QUEtiapine 25 MG TABLET. PO SCH ×2 (08:22→08:31)
[2016-08-26 11:00] VITALS: BP 110/72
--- NOTE | 2016-08-26 11:26 | PDOC3 ---
Discharge Summary Visit Information Date of Admission: Aug 25, 2016 Date of Discharge: Aug 26, 2016 Final Diagnosis 1. Toxic encephalopathy 2. REcreational drug use 3. Anxiety, depression NOS 4. Hx schizophrenia and bipolar d/o by documentation Brief Hospital Course Allergies Allergies Coded Allergies Type Severity Reaction Last Updated Verified No Known Allergies Allergy Unknown 07/24/16 Yes Vital Signs Vital Signs Date Time Temp Pulse Resp B/P (MAP) Pulse Ox O2 Delivery O2 Flow Rate FiO2 08/26/16 09:25 Room Air 08/26/16 08:22 75 143/41 08/26/16 07:00 98.0 20 92 98.0 Lab Results Laboratory Tests Test 08/25/16 00:12 08/25/16 03:49 08/26/16 03:25 White Blood Count 13.7 x10^3/uL (4.0-11.0) 7.4 x10^3/uL (4.0-11.0) Red Blood Count 4.27 x10^6/uL (4.30-5.70) 4.13 x10^6/uL (4.30-5.70) Hemoglobin 12.6 g/dL (13.0-17.5) 12.4 g/dL (13.0-17.5) Hematocrit 37.8 % (39.0-53.0) 36.8 % (39.0-53.0) Mean Corpuscular Volume 88 fL (79-100) 89 fL (79-100) Mean Corpuscular Hemoglobin 30 pg (25-35) 30 pg (25-35) Mean Corpuscular Hemoglobin Concent 33 g/dL (31-37) 34 g/dL (31-37) Red Cell Distribution Width 13.6 % (11.5-14.5) 13.4 % (11.5-14.5) Platelet Count 295 x10^3/uL (140-400) 249 x10^3/uL (140-400) Neutrophils (%) (Auto) 58 % (31-73) 42 % (31-73) Lymphocytes (%) (Auto) 26 % (24-48) 40 % (24-48) Monocytes (%) (Auto) 11 % (0-9) 12 % (0-9) Eosinophils (%) (Auto) 3 % (0-3) 6 % (0-3) Basophils (%) (Auto) 1 % (0-3) 1 % (0-3) Neutrophils # (Auto) 8.0 x10^3uL (1.8-7.7) 3.1 x10^3uL (1.8-7.7) Lymphocytes # (Auto) 3.6 x10^3/uL (1.0-4.8) 3.0 x10^3/uL (1.0-4.8) Monocytes # (Auto) 1.5 x10^3/uL (0.0-1.1) 0.9 x10^3/uL (0.0-1.1) Eosinophils # (Auto) 0.5 x10^3/uL (0.0-0.7) 0.4 x10^3/uL (0.0-0.7) Basophils # (Auto) 0.1 x10^3/uL (0.0-0.2) 0.1 x10^3/uL (0.0-0.2) Sodium Level 136 mmol/L (136-145) 140 mmol/L (136-145) Potassium Level 3.6 mmol/L (3.5-5.1) 4.1 mmol/L (3.5-5.1) Chloride Level 98 mmol/L (98-107) 103 mmol/L (98-107) Carbon Dioxide Level 29 mmol/L (21-32) 28 mmol/L (21-32) Anion Gap 9 (6-14) 9 (6-14) Blood Urea Nitrogen 28 mg/dL (8-26) 19 mg/dL (8-26) Creatinine 1.7 mg/dL (0.7-1.3) 1.1 mg/dL (0.7-1.3) Estimated GFR (Cockcroft-Gault) 43.2 71.4 Glucose Level 105 mg/dL (70-99) 109 mg/dL (70-99) Calcium Level 9.3 mg/dL (8.5-10.1) 8.3 mg/dL (8.5-10.1) Magnesium Level 1.9 mg/dL (1.8-2.4) Total Bilirubin 0.6 mg/dL (0.2-1.0) Direct Bilirubin 0.1 mg/dL (0.0-0.2) Aspartate Amino Transf (AST/SGOT) 26 U/L (15-37) Alanine Aminotransferase (ALT/SGPT) 26 U/L (16-63) Alkaline Phosphatase 90 U/L (46-116) Ammonia 14 mcmol/L (11-34) Total Protein 7.6 g/dL (6.4-8.2) Albumin 4.0 g/dL (3.4-5.0) Thyroid Stimulating Hormone (TSH) 0.830 uIU/mL (0.358-3.74) Salicylates Level < 2.8 mg/dL (2.8-20.0) Salicylate Last Dose Date Unk Salicylate Last Dose Time Unk Acetaminophen Level < 2 mcg/ml (10-30) Acetaminophen Last Dose Date Unk Acetaminophen Last Dose Time Unk Ethyl Alcohol Level < 10 mg/dL (0-10) Urine Collection Type Unknown Urine Color Yellow Urine Clarity Clear Urine pH 5.0 Urine Specific [place] 1.015 Urine Protein Negative mg/dL (NEG-TRACE) Urine Glucose (UA) Negative mg/dL (NEG) Urine Ketones (Stick) Negative mg/dL (NEG) Urine Blood Negative (NEG) Urine Nitrite Negative (NEG) Urine Bilirubin Negative (NEG) Urine Urobilinogen Dipstick 0.2 mg/dL (0.2 mg/dL) Urine Leukocyte Esterase Negative (NEG) Urine RBC 0 /HPF (0-2) Urine WBC 1-4 /HPF (0-4) Urine Squamous Epithelial Cells Occ /LPF Urine Bacteria 0 /HPF (0-FEW) Urine Hyaline Casts Moderate /HPF Urine Mucus Mod /LPF Urine Opiates Screen Neg (NEG) Urine Methadone Screen Neg (NEG) Urine Barbiturates Neg (NEG) Urine Phencyclidine Screen Neg (NEG) Urine Amphetamine/Methamphetamine Pos (NEG) Urine Benzodiazepines Screen Neg (NEG) Urine Cocaine Screen Neg (NEG) Urine Cannabinoids Screen Neg (NEG) Urine Ethyl Alcohol Neg (NEG) Laboratory Tests Test 08/26/16 03:25 White Blood Count 7.4 x10^3/uL (4.0-11.0) Red Blood Count 4.13 x10^6/uL (4.30-5.70) Hemoglobin 12.4 g/dL (13.0-17.5) Hematocrit 36.8 % (39.0-53.0) Mean Corpuscular Volume 89 fL (79-100) Mean Corpuscular Hemoglobin 30 pg (25-35) Mean Corpuscular Hemoglobin Concent 34 g/dL (31-37) Red Cell Distribution Width 13.4 % (11.5-14.5) Platelet Count 249 x10^3/uL (140-400) Neutrophils (%) (Auto) 42 % (31-73) Lymphocytes (%) (Auto) 40 % (24-48) Monocytes (%) (Auto) 12 % (0-9) Eosinophils (%) (Auto) 6 % (0-3) Basophils (%) (Auto) 1 % (0-3) Neutrophils # (Auto) 3.1 x10^3uL (1.8-7.7) Lymphocytes # (Auto) 3.0 x10^3/uL (1.0-4.8) Monocytes # (Auto) 0.9 x10^3/uL (0.0-1.1) Eosinophils # (Auto) 0.4 x10^3/uL (0.0-0.7) Basophils # (Auto) 0.1 x10^3/uL (0.0-0.2) Sodium Level 140 mmol/L (136-145) Potassium Level 4.1 mmol/L (3.5-5.1) Chloride Level 103 mmol/L (98-107) Carbon Dioxide Level 28 mmol/L (21-32) Anion Gap 9 (6-14) Blood Urea Nitrogen 19 mg/dL (8-26) Creatinine 1.1 mg/dL (0.7-1.3) Estimated GFR (Cockcroft-Gault) 71.4 Glucose Level 109 mg/dL (70-99) Calcium Level 8.3 mg/dL (8.5-10.1) Brief Hospital Course Mr. Ennis is a 50 old [sex] who presented with [ ] 50 year old male who presents via EMS found outside wandering around threatening to harm individuals. Patient is actively psychotic and yelling at staff. He will not follow commands. He does have a past medical history of meth abuse, anxiety, bipolar, depression, hypertension and schizophrenia. THis documentation was gathered from ER documentation, as pt got geodon 20 mgs IM last night and is fast asleep. NO family at bedside. Sitter at bedside As per sitter, he woke up, went to bathroom, was not interested in breakfast and went back to sleep TRay untouched CReat 1.7 WBC 13 Positive amphetamines in UDS COURSE: STayed overnight with sitter, IVF. BMP normalized next day, PAt assessed - not meet criteria for inpt psych, HE also does not want to go, Homeless, NO family, REfused seroquel as home med. Will go back to homeless [facility], Rolf Navarro Pt seen and examined with RN and sitter at bedside. NO rx needed Discharge Information Condition at Discharge: Improved, Stable Disposition/Orders: D/C to Home Scheduled Alprazolam (Xanax), 1 TAB PO TID, (Reported) Amoxicillin/Potassium Clav (Augmentin 875-125 Tablet), 1 TAB PO BID Lisinopril (Lisinopril), 1 TAB PO DAILY, (Reported) Quetiapine Fumarate (Quetiapine Fumarate), 50 MG PO DAILY Scheduled PRN Alprazolam (Alprazolam), 0.5 MG PO PRN Q8HRS PRN for ANXIETY / AGITATION KELLY TINAJERO MD Aug 26, 2016 11:26
== END 2016-08-26 13:12 | disposition home or self-care (01) ==
LOC: ER 23:53 → 5 NORTH 08-25 01:30
PROVIDERS: ADMIT Internal Medicine; ATTEND Internal Medicine
DX: G92 Toxic encephalopathy (principal); F19.10 Other psychoactive substance abuse, uncomplicated; F20.9 Schizophrenia, unspecified; F31.9 Bipolar disorder, unspecified; F41.9 Anxiety disorder, unspecified; I10 Essential (primary) hypertension
CPT/HCPCS: 36415; 80048; 80076; 80329; 81001; 82140; 83735; 84443; 85027; 93005; 96360; 96361; 99285; G0378; G0480; G0481; J3486; 96372; G0379